=== PATIENT | male | born 1980 | race Caucasian/White ===

== ENCOUNTER 2017-06-27 16:14 | Inpatient (IN) ==
[2017-06-27] MEDS ORDERED: 0.9 % Sodium Chloride 500 ML IVC ONE (16:36)
--- NOTE | 2017-06-27 16:36 | Emergency Department Note ---
Disposition Clinical Impression: Hypertensive emergency, Elevated troponin Disposition: Admitted As Inpatient Condition: Fair Referrals: Elie Gil DO [Primary Care Provider] - Forms: ED Satisfaction Letter General Adult HPI - General Chief complaint: ED Headache Stated complaint: Migraine, chest pain, blurred vision Time Seen by Provider: 06/27/17 16:29 - Related Data Home Medications Medication Instructions Recorded Confirmed Albuterol Neb [Proventil Neb] 2.5 mg IH Q4HR PRN 12/23/16 12/23/16 Albuterol Sulfate [Proair Hfa] 2 puff IH Q4H PRN 12/23/16 12/23/16 Carvedilol [Coreg] 6.25 mg PO BIDWM 12/23/16 12/23/16 Divalproex (24 HR) [Depakote ER 500 mg PO HS 12/23/16 12/23/16 (24 HR)] Doxepin [Sinequan] 25 mg PO HS 12/23/16 12/23/16 Doxycycline Hyclate 20 mg PO BID 12/23/16 12/23/16 Fluticasone Propionate Nasal 2 spray NS DAILY PRN 12/23/16 12/23/16 [Flonase] Fluticasone/Salmeterol [Advair 1 puff IH BID 12/23/16 12/23/16 250-50 Diskus] Gabapentin [Neurontin] 600 mg PO TID 12/23/16 12/23/16 Lisinopril [Zestril] 20 mg PO DAILY 12/23/16 12/23/16 Lurasidone HCl [Latuda] 80 mg PO DAILY 12/23/16 12/23/16 Long/Poly/Juwan OINT [Triple 1 appl TP BID 12/23/16 12/23/16 Antibiotic Ointment] Omeprazole [PriLOSEC] 20 mg PO DAILY 12/23/16 12/23/16 Tiotropium [Spiriva] 1 cap IH DAILY 12/23/16 12/23/16 Triamterene/Hydrochlorothiazid 1 tab PO DAILY 12/23/16 12/23/16 [Dyazide 37.5-25 Capsule] amLODIPine [Norvasc] 5 mg PO DAILY 12/23/16 12/23/16 predniSONE [PredniSONE] 10 mg PO DAILY 12/23/16 12/23/16 Allergies Allergy/AdvReac Type Severity Reaction Status Date / Time albuterol Allergy See Verified 10/01/15 23:02 Comments atropine Allergy See Verified 10/01/15 23:02 Comments doxycycline Allergy See Verified 12/23/16 13:14 Comments duloxetine [From Cymbalta] Allergy See Verified 12/23/16 13:14 Comments venlafaxine [From Effexor] Allergy See Verified 12/23/16 13:13 Comments Past Medical History - Past Medical History Medical history: Reports: asthma, COPD, hypertension, seizures Psychiatric history: Reports: anxiety, bipolar, depression - Social History Smoking Status: Current every day smoker Smokeless Tobacco Status: No Alcohol use: Reports: none Drug use: Reports: none Course Vital Signs Temperature 0 F L 06/27/17 16:34 Pulse Rate 78 06/27/17 16:34 Respiratory Rate 18 06/27/17 16:34 Blood Pressure 222/123 06/27/17 16:34 O2 Sat by Pulse Oximetry 92 06/27/17 16:34 Temperature 0 F L 06/27/17 16:34 Pulse Rate 78 06/27/17 16:34 Respiratory Rate 18 06/27/17 16:34 Blood Pressure 222/123 06/27/17 16:34 O2 Sat by Pulse Oximetry 92 06/27/17 16:34 Oxygen Delivery Oxygen Delivery Room Air Medical Decision Making - Lab Data Result diagrams: 06/27/17 16:45 06/27/17 16:45 Lab Results 06/27/17 06/27/17 06/27/17 Range/Units 16:37 16:45 16:45 WBC 8.1 (4.3-11.1) K/mcL RBC 5.92 H (4.19-5.50) M/mcL Hgb 15.9 (12.9-16.9) g/dL Hct 45.5 (37.5-50.1) % MCV 76.9 L (83.0-100.0) fL MCH 26.9 L (28.0-33.3) pg MCHC 34.9 (31.6-35.5) g/dL RDW 13.4 (11.5-14.5) % Plt Count 262 (140-400) K/mcL MPV 10.0 (9.4-12.4) fL Immature Gran % 0.2 (0-4) % Seg Neutrophils % 77.7 % Lymphocytes % 14.4 % Monocytes % 6.8 % Eosinophils % 0.5 % Basophils % 0.4 % Neutrophils # 6.3 (1.6-8.9) K/mcL Lymphocytes # 1.2 (0.6-4.6) K/mcL Monocytes # 0.6 (0.0-1.3) K/mcL Eosinophils # 0.0 (0.0-0.6) K/mcL Basophils # 0.0 (0.0-0.2) K/mcL Immature Plt Fraction 4.9 (1.1-6.1) % Sodium 143 (136-145) mEq/L Potassium 3.3 L (3.5-4.5) mEq/L Chloride 103 (98-109) mEq/L Carbon Dioxide 28 (19-29) mEq/L BUN 6 L (8-26) mg/dL Creatinine 0.85 (0.72-1.25) mg/dL Est GFR ( Amer) > 60 (> 60) Est GFR (Non-Af Amer) > 60 (> 60) BUN/Creatinine Ratio 7 (6-26) Glucose 133 H (70-99) mg/dL POC Glucose 131 H (58-89) Calculated Osmolality 296 (280-300) Calcium 10.1 (8.6-10.8) mg/dL Total Bilirubin 1.5 H (0.2-1.2) mg/dL AST 52 H (5-34) Units/L ALT 37 (0-55) Units/L Alkaline Phosphatase 164 H (38-126) Units/L Troponin I (0-0.03) ng/mL Serum Total Protein 8.2 (6.0-8.3) g/dL Albumin 4.2 (3.5-5.0) g/dL Globulin 4.0 H (2.4-3.5) g/dL Albumin/Globulin Ratio 1.1 (1.1-2.2) 06/27/17 Range/Units 16:45 WBC (4.3-11.1) K/mcL RBC (4.19-5.50) M/mcL Hgb (12.9-16.9) g/dL Hct (37.5-50.1) % MCV (83.0-100.0) fL MCH (28.0-33.3) pg MCHC (31.6-35.5) g/dL RDW (11.5-14.5) % Plt Count (140-400) K/mcL MPV (9.4-12.4) fL Immature Gran % (0-4) % Seg Neutrophils % % Lymphocytes % % Monocytes % % Eosinophils % % Basophils % % Neutrophils # (1.6-8.9) K/mcL Lymphocytes # (0.6-4.6) K/mcL Monocytes # (0.0-1.3) K/mcL Eosinophils # (0.0-0.6) K/mcL Basophils # (0.0-0.2) K/mcL Immature Plt Fraction (1.1-6.1) % Sodium (136-145) mEq/L Potassium (3.5-4.5) mEq/L Chloride (98-109) mEq/L Carbon Dioxide (19-29) mEq/L BUN (8-26) mg/dL Creatinine (0.72-1.25) mg/dL Est GFR ( Amer) (> 60) Est GFR (Non-Af Amer) (> 60) BUN/Creatinine Ratio (6-26) Glucose (70-99) mg/dL POC Glucose (58-89) Calculated Osmolality (280-300) Calcium (8.6-10.8) mg/dL Total Bilirubin (0.2-1.2) mg/dL AST (5-34) Units/L ALT (0-55) Units/L Alkaline Phosphatase (38-126) Units/L Troponin I 0.07 H* (0-0.03) ng/mL Serum Total Protein (6.0-8.3) g/dL Albumin (3.5-5.0) g/dL Globulin (2.4-3.5) g/dL Albumin/Globulin Ratio (1.1-2.2) Critical Care Time Critical Care Time: Yes Total Critical Care Time: 30 Attestation: Patient presented with hypertensive urgency causing chest pain and headache requiring IV nicardipine infusion Attestation Statement - Attestation Attestation: I examined this patient and my medical decision-making was reviewed with the Resident Physician. I agree with the documented findings, disposition and treatment plan as described except to the extent set forth below. [id number] time provided. Patient complains of a headache and chest pain radiating to his back. He has a history of sarcoidosis and medication noncompliance for his hypertension. He is pale and diaphoretic and near syncopal at the time of my initial exam. He is hypertensive with a systolic blood pressure 220. CT chest with IV contrast ordered. CT head ordered. We will review labs and EKG does not show any acute ST segment elevation. Nitroglycerin given for chest pain and assistance with blood pressure control.
--- NOTE | 2017-06-27 16:39 | Emergency Department Note ---
Disposition Clinical Impression: Hypertensive emergency, Elevated troponin Headache Qualifiers: Headache type: unspecified Headache chronicity pattern: unspecified pattern Intractability: not intractable Qualified Code(s): R51 - Headache Chest pain Qualifiers: Chest pain type: unspecified Qualified Code(s): R07.9 - Chest pain, unspecified Disposition: Admitted As Inpatient Condition: Fair Time of Disposition: 19:08 General Adult HPI - General Chief complaint: ED Headache Stated complaint: Migraine, chest pain, blurred vision Time Seen by Provider: 06/27/17 16:29 Source: patient Mode of arrival: wheelchair Limitations: no limitations Nursing Notes Reviewed: Yes Vital Signs Reviewed: Yes - History of Present Illness HPI Narrative: 36-year-old male presents history of hypertension, sarcoid on daily prednisone 20 mg presents for evaluation of migraine as well as chest pain. Patient states that he has not been taking his hypertensive medications over the last couple weeks due to general illness. States that he had a headache that started earlier today. Noted the frontal as well as occipital headache. No aggravating or alleviating factors identified. No focal weakness. No recent trauma. Patient states that he had chest pain that started approximately 3 hours ago noticed to be diffuse across his chest with radiation to his back. Patient reports some nausea no symptoms of emesis. Patient does note to be diaphoretic. No abdominal pain. Patient states he just does not feel well. - Related Data Home Medications Medication Instructions Recorded Confirmed Albuterol Neb [Proventil Neb] 2.5 mg IH Q4HR PRN 12/23/16 12/23/16 Albuterol Sulfate [Proair Hfa] 2 puff IH Q4H PRN 12/23/16 12/23/16 Carvedilol [Coreg] 6.25 mg PO BIDWM 12/23/16 12/23/16 Divalproex (24 HR) [Depakote ER 500 mg PO HS 12/23/16 12/23/16 (24 HR)] Doxepin [Sinequan] 25 mg PO HS 12/23/16 12/23/16 Doxycycline Hyclate 20 mg PO BID 12/23/16 12/23/16 Fluticasone Propionate Nasal 2 spray NS DAILY PRN 12/23/16 12/23/16 [Flonase] Fluticasone/Salmeterol [Advair 1 puff IH BID 12/23/16 12/23/16 250-50 Diskus] Gabapentin [Neurontin] 600 mg PO TID 12/23/16 12/23/16 Lisinopril [Zestril] 20 mg PO DAILY 12/23/16 12/23/16 Lurasidone HCl [Latuda] 80 mg PO DAILY 12/23/16 12/23/16 Long/Poly/Juwan OINT [Triple 1 appl TP BID 12/23/16 12/23/16 Antibiotic Ointment] Omeprazole [PriLOSEC] 20 mg PO DAILY 12/23/16 12/23/16 Tiotropium [Spiriva] 1 cap IH DAILY 12/23/16 12/23/16 Triamterene/Hydrochlorothiazid 1 tab PO DAILY 12/23/16 12/23/16 [Dyazide 37.5-25 Capsule] amLODIPine [Norvasc] 5 mg PO DAILY 12/23/16 12/23/16 predniSONE [PredniSONE] 10 mg PO DAILY 12/23/16 12/23/16 Allergies Allergy/AdvReac Type Severity Reaction Status Date / Time albuterol Allergy See Verified 10/01/15 23:02 Comments atropine Allergy See Verified 10/01/15 23:02 Comments doxycycline Allergy See Verified 12/23/16 13:14 Comments duloxetine [From Cymbalta] Allergy See Verified 12/23/16 13:14 Comments venlafaxine [From Effexor] Allergy See Verified 12/23/16 13:13 Comments All systems ED: reviewed and negative except as stated. Constitutional: Reports: as per HPI. Denies: fever Eyes: Reports: as per HPI ENT ED: Reports: as per HPI Cardiovascular: Reports: as per HPI. Denies: chest pain Respiratory: Reports: as per HPI Gastrointestinal: Reports: as per HPI, nausea. Denies: abdominal pain, vomiting Genitourinary: Reports: as per HPI Musculoskeletal: Reports: as per HPI Integumentary: Reports: as per HPI Neurological: Reports: as per HPI, headache Psychiatric: Reports: as per HPI Endocrine: Reports: as per HPI Hematological/Lymphatic: Reports: as per HPI Past Medical History - Past Medical History Medical history: Reports: asthma, COPD, hypertension, seizures Psychiatric history: Reports: anxiety, bipolar, depression - Social History Smoking Status: Current every day smoker Smokeless Tobacco Status: No Alcohol use: Reports: none Drug use: Reports: none Physical Exam - General Limitations: no limitations General appearance: alert, in distress, other (Near syncope at the time of evaluation.) - Head Head exam: other (Abrasion to scalp) - Eye Eye exam: Present: normal appearance, EOMI - ENT ENT exam: normal exam, mucous membranes moist - Neck Neck exam: Present: normal inspection - Chest Chest inspection: Present: normal inspection - Respiratory Respiratory exam: Present: normal lung sounds bilaterally. Absent: respiratory distress - Cardiovascular Cardiovascular exam: Present: regular rate, normal rhythm. Absent: systolic murmur - Abdominal Exam Abdominal exam: Present: soft, Non-Tender. Absent: tenderness, distention, guarding, rebound, rigidity - Extremities Exam Extremities exam: Present: normal inspection. Absent: pedal edema - Back Exam Back exam: Present: normal inspection - Neurological Exam Neurological exam: Present: alert, oriented X3, CN II-XII intact - Expanded Neurological Exam Patient oriented to: Present: person, place, time Speech: Present: fluid speech Motor strength - LUE: 5/5 Motor strength - RUE: 5/5 Motor strength - LLE: 5/5 Motor strength - RLE: 5/5 - Skin Skin exam: Present: warm (Tinea versicolor across the abdomen/chest), dry, other Course Course Narrative: Patient seen and examined. Patient. Near-syncope diaphoretic at time of exam. Patient's hypertensive noted. Patient likely has hypertensive emergency. Patient will get CT of the head as well as the chest concerns of aortic pathology. Patient also get a cardiac evaluation with EKG troponin basic labs. Patient will be given nitroglycerin for chest pain as well as a pressure lowering - Reevaluation(s) Reevaluation #1: Patient's blood pressure improved after 3 nitroglycerin. Patient's blood pressures down to 140 systolic. Time: 17:01 Reevaluation #2: Patient's resting. Patient's blood pressure systolic is 184. Patient was given stress dose steroids given his daily steroids have been discontinued with his recent illness. Time: 17:26 Reevaluation #3: Patient's blood pressure is beginning to increase. We will start a nicardipine drip. Time: 17:38 Additional Reevaluation(s): 0632. Patient seen and examined. Patient's blood pressure is gradually reducing. Patient's blood pressure is 181 systolic. Patient will be given his Depakote as he says he has been taking it for the past week and a half because he ran out. Patient will also be given pain medicine. Vital Signs Temperature 0 F L 06/27/17 16:34 Pulse Rate 78 06/27/17 16:34 Respiratory Rate 18 06/27/17 16:34 Blood Pressure 222/123 06/27/17 16:34 O2 Sat by Pulse Oximetry 92 06/27/17 16:34 Temperature 0 F L 06/27/17 16:34 Pulse Rate 80 06/27/17 18:17 Respiratory Rate 18 06/27/17 18:17 Blood Pressure 216/131 06/27/17 18:17 O2 Sat by Pulse Oximetry 95 06/27/17 18:17 Oxygen Delivery Oxygen Delivery Room Air Medical Decision Making - MDM Narrative Medical decision making narrative: 36-year-old male since for evaluation of headache as well as chest pain. Patient has a history of sarcoid on chronic steroids. Patient states he has not been taking his blood pressure medications for at least the past couple weeks. Patient states he has been feeling well but is a difficult historian and does not identify any reason why he has not been feeling well. On arrival the patient appeared diaphoretic and near syncope. Patient had a systolic blood pressure in the 200s. Patient was complaining of chest pain. Patient was brought back to the treatment area and EKG was obtained. Patient received a nitroglycerin trial which helped improve his blood pressure however was only temporary improvement and the patient began to become more hypertensive. Concerns that the patient's blood pressure is causing all of the symptoms. Patient was started on a nicardipine drip to help titrate his blood pressure. Patient had CT of the head as well as chest obtained to ensure there is no aortic dissection or pathology. Patient's troponin was elevated likely secondary to his hypertensive crisis. Patient was given stress dose steroids. Patient would need further monitoring including gradual titration patient's blood pressure trending troponins and serial EKGs. - Lab Data Lab results reviewed: Yes I reviewed the patient's lab results. Result diagrams: 06/27/17 16:45 06/27/17 16:45 Lab Results 06/27/17 06/27/17 06/27/17 Range/Units 16:37 16:45 16:45 WBC 8.1 (4.3-11.1) K/mcL RBC 5.92 H (4.19-5.50) M/mcL Hgb 15.9 (12.9-16.9) g/dL Hct 45.5 (37.5-50.1) % MCV 76.9 L (83.0-100.0) fL MCH 26.9 L (28.0-33.3) pg MCHC 34.9 (31.6-35.5) g/dL RDW 13.4 (11.5-14.5) % Plt Count 262 (140-400) K/mcL MPV 10.0 (9.4-12.4) fL Immature Gran % 0.2 (0-4) % Seg Neutrophils % 77.7 % Lymphocytes % 14.4 % Monocytes % 6.8 % Eosinophils % 0.5 % Basophils % 0.4 % Neutrophils # 6.3 (1.6-8.9) K/mcL Lymphocytes # 1.2 (0.6-4.6) K/mcL Monocytes # 0.6 (0.0-1.3) K/mcL Eosinophils # 0.0 (0.0-0.6) K/mcL Basophils # 0.0 (0.0-0.2) K/mcL Immature Plt Fraction 4.9 (1.1-6.1) % Sodium 143 (136-145) mEq/L Potassium 3.3 L (3.5-4.5) mEq/L Chloride 103 (98-109) mEq/L Carbon Dioxide 28 (19-29) mEq/L BUN 6 L (8-26) mg/dL Creatinine 0.85 (0.72-1.25) mg/dL Est GFR ( Amer) > 60 (> 60) Est GFR (Non-Af Amer) > 60 (> 60) BUN/Creatinine Ratio 7 (6-26) Glucose 133 H (70-99) mg/dL POC Glucose 131 H (58-89) Calculated Osmolality 296 (280-300) Calcium 10.1 (8.6-10.8) mg/dL Total Bilirubin 1.5 H (0.2-1.2) mg/dL AST 52 H (5-34) Units/L ALT 37 (0-55) Units/L Alkaline Phosphatase 164 H (38-126) Units/L Troponin I (0-0.03) ng/mL Serum Total Protein 8.2 (6.0-8.3) g/dL Albumin 4.2 (3.5-5.0) g/dL Globulin 4.0 H (2.4-3.5) g/dL Albumin/Globulin Ratio 1.1 (1.1-2.2) Valproic Acid < 2.00 L (50-100) mcg/mL 06/27/17 Range/Units 16:45 WBC (4.3-11.1) K/mcL RBC (4.19-5.50) M/mcL Hgb (12.9-16.9) g/dL Hct (37.5-50.1) % MCV (83.0-100.0) fL MCH (28.0-33.3) pg MCHC (31.6-35.5) g/dL RDW (11.5-14.5) % Plt Count (140-400) K/mcL MPV (9.4-12.4) fL Immature Gran % (0-4) % Seg Neutrophils % % Lymphocytes % % Monocytes % % Eosinophils % % Basophils % % Neutrophils # (1.6-8.9) K/mcL Lymphocytes # (0.6-4.6) K/mcL Monocytes # (0.0-1.3) K/mcL Eosinophils # (0.0-0.6) K/mcL Basophils # (0.0-0.2) K/mcL Immature Plt Fraction (1.1-6.1) % Sodium (136-145) mEq/L Potassium (3.5-4.5) mEq/L Chloride (98-109) mEq/L Carbon Dioxide (19-29) mEq/L BUN (8-26) mg/dL Creatinine (0.72-1.25) mg/dL Est GFR ( Amer) (> 60) Est GFR (Non-Af Amer) (> 60) BUN/Creatinine Ratio (6-26) Glucose (70-99) mg/dL POC Glucose (58-89) Calculated Osmolality (280-300) Calcium (8.6-10.8) mg/dL Total Bilirubin (0.2-1.2) mg/dL AST (5-34) Units/L ALT (0-55) Units/L Alkaline Phosphatase (38-126) Units/L Troponin I 0.07 H* (0-0.03) ng/mL Serum Total Protein (6.0-8.3) g/dL Albumin (3.5-5.0) g/dL Globulin (2.4-3.5) g/dL Albumin/Globulin Ratio (1.1-2.2) Valproic Acid (50-100) mcg/mL - Radiology Data Radiology results reviewed: Yes I reviewed the patient's radiology results. Head CT 06/27/17 16:33 IMPRESSION: No acute intracranial abnormality. D/ / Joe Menjivar MD / Joe Menjivar MD Interpreting Provider: Joe Menjivar MD Chest X-Ray 06/27/17 16:50 IMPRESSION: 1. Chronic interstitial opacities of the lungs bilaterally and mild opacities within the right lung base likely reflecting atelectasis. D/ / Joe Menjivar MD / Joe Menjivar MD Interpreting Provider: Joe Menjivar MD - EKG Data EKG #1 EKG attestation: Yes I reviewed and interpreted this EKG. EKG shows normal: sinus rhythm Rate: normal Rhythm: NSR [place]/QRS: normal Interpretation: no acute changes, unchanged when compared to prior tracing (date ) S.B.ANaomie - Sunny.B.ANaomie Situation: Demographics Background: Presenting Complaint Assessment: Vital Signs, Course and respsone to treatment, Patient/Family Expectation, Pertinant Lab Results Recommendation: Barrier(s) to disposition, Recommendation based on pending studies, treatments, or consults S.B.A.RMele Report Given to: Shana Hogan Repor Time: 18:38
[2017-06-27] MEDS: Nitroglycerin 0.4 MG TAB.SUBL SL PRN ×3 (16:50→17:00)
[2017-06-27 16:52] LABS: Basophils % 0.4 %; Eosinophils % 0.5 %; Hematocrit 45.5 % (37.5-50.1); Hemoglobin 15.9 g/dL (12.9-16.9); Immature Granulocytes % 0.2 % (0-4); Immature Platelets 4.9 % (1.1-6.1); Lymphocytes # 1.2 K/mcL (0.6-4.6); Lymphocytes % 14.4 %; Mean Corpuscular HGB Conc 34.9 g/dL (31.6-35.5); Mean Corpuscular Hemoglobin 26.9 pg (28.0-33.3); Mean Corpuscular Volume 76.9 fL (83.0-100.0); Monocytes # 0.6 K/mcL (0.0-1.3); Monocytes % 6.8 %; Neutrophils # 6.3 K/mcL (1.6-8.9); Platelet Count 262 K/mcL (140-400); Red Blood Count 5.92 M/mcL (4.19-5.50); Red Cell Distribution Width 13.4 % (11.5-14.5); Segmented Neutrophils % 77.7 %
[2017-06-27] MEDS ORDERED: Ondansetron 4 MG/2 ML VIAL IVP ONE (16:53)
[2017-06-27] MEDS ORDERED: Hydrocortisone Sodium Succ 100 MG/2 ML VIAL IVP ONE (17:01)
[2017-06-27 17:05] LABS: Alanine Aminotransferase 37 Units/L (0-55); Albumin 4.2 g/dL (3.5-5.0); Albumin/Globulin Ratio 1.1 (1.1-2.2); Alkaline Phosphatase 164 Units/L (38-126); Aspartate Amino Transferase 52 Units/L (5-34); BUN/Creatinine Ratio 7 (6-26); Bilirubin,Total 1.5 mg/dL (0.2-1.2); Blood Urea Nitrogen 6 mg/dL (8-26); Calcium 10.1 mg/dL (8.6-10.8); Carbon Dioxide 28 mEq/L (19-29); Chloride 103 mEq/L (98-109); Glucose 133 mg/dL (70-99); Osmolality,Calculated 296 (280-300); Potassium 3.3 mEq/L (3.5-4.5); Sodium 143 mEq/L (136-145); Total Protein 8.2 g/dL (6.0-8.3); eGFR For African Americans > 60 (> 60); eGFR For Non-African Americans > 60 (> 60)
[2017-06-27] MEDS: niCARdipine 40 MG/200 ML MLS IVC SCH (18:14)
[2017-06-27 18:20] LABS: Valproate < 2.00 mcg/mL (50-100)
[2017-06-27] MEDS ORDERED: *HR* HYDROmorphone (PF) 1 MG/ML SYRINGE IVP ONE (18:31)
[2017-06-27] MEDS ORDERED: Divalproex (24 HR) 500 MG TABLET PO SCH (21:00)
[2017-06-27] MEDS ORDERED: *HR* Promethazine 25 MG/ML VIAL IVP PRN (21:11)
[2017-06-27] MEDS ORDERED: Ondansetron 4 MG/2 ML VIAL IVP PRN (21:11)
[2017-06-27] MEDS ORDERED: Naloxone 0.4 MG/ML INJ IVP PRN (21:11)
[2017-06-27] MEDS ORDERED: Ibuprofen 400 MG TABLET PO PRN (21:11)
--- NOTE | 2017-06-27 21:11 | Internal Med History&Physical ---
<Petey Rodriguez - Last Filed: 06/28/17 05:34> Date of Encounter: 06/28/17 Time of Encounter: 20:45 Assessment and Plan (1) Hypertensive emergency Current visit: Yes Status: Acute Patient present to the hospital with highly elevated blood pressure, above 220 systolic. His blood pressure is likely due to his inability to take his oral antihypertensives for about a week and likely rebound. Is unable to take his blood pressure medications because he has been feeling somewhat ill and nauseated. Anticipate headache will improve her blood pressure better controlled. We will control nausea with ondansetron so he is able tolerate by mouth Resume antihypertensive medications, including: Amlodipine, carvedilol, lisinopril, triamterene/HCTZ Continue to titrate the Cardene drip to keep patient's blood pressure below 160 , titrate Cardene off if possible (2) Headache Current visit: Yes Status: Acute Patient reports severe headache beginning behind his eyes and in his neck. He describes the pain as severe. His headache is associated with a blurry vision, is all likely due to his extreme blood pressure. We will control pain with acetaminophen, ibuprofen, oxycodone, hydromorphone as needed for headache severity We will control blood pressure as above Qualifiers: Headache type: unspecified Headache chronicity pattern: unspecified pattern Intractability: not intractable Qualified Code(s): R51 - Headache (3) Elevated troponin Current visit: Yes Status: Acute Patient presents with elevated troponins of 0.07 with follow-up of 0.09. Patient does report having atypical chest pain, unlikely ACS given presentation , EKG without ischemic changes, and relatively flat troponins. Likely demand ischemia in the presence of hypertensive emergency We will continue to trend troponin every 6 We will obtain echocardiogram (4) Sarcoidosis Current visit: Yes Status: Chronic Patient diagnosed with sarcoidosis, had multiple biopsies in the past. Is under the care of a physician at [facility]. He is chronically on Prinivil. We will continue home prednisone (5) COPD (chronic obstructive pulmonary disease) Current visit: Yes Status: Chronic Currently stable. Continue home medications Qualifiers: COPD type: chronic bronchitis Chronic bronchitis type: simple Qualified Code(s): J41.0 - Simple chronic bronchitis (6) DVT prophylaxis Current visit: Yes Status: Acute 5000 units heparin subcutaneous 3 times a day Internal Medicine - H&P: HPI Chief complaint: Headache and Chest Pain Admitted From: Home Plans for Post Hospital Care: Home History of present illness: Mr. Parekh is a 36 year old male with prior medical history of COPD, sarcoidosis , hypertension, and bipolar and anxiety who presents to [facility] on 06/27/17 with severe headache and chest pain. He reports that he is feeling sick for roughly a month prior to presentation, but today it was worse than usual probably him to come in the emergency room. He did try to go to the emergency room previously but between car troubles intermittence of symptoms he never came to the hospital. His headache today started 2:00 in the afternoon behind his eyes and his temples and also in his neck (reactive previous neck fusion). It is a constant feeling where she feels he has some nausea and blurred vision (especially in his right eye), and is 9/10 in severity. He states chest pain began about 2 hours after the onset of headache and feels pain is sharp in character, localized to the right of center of his chest, and worsened by deep breathing, but no radiation. He states he is ever had symptoms before. During the past month he has had multiple episodes of feeling ill, sick to his stomach, emesis, and overall feeling when he has infection. This has caused him to miss several of his medications including his blood pressure medications for the past week. He also states that he has been with pain pump previously for his chronic pain issues, but was in the process of weaning down his medications, to supplement the pump he also is taking Tylenol consistently, but recently has not been able to because of his overall sickness. He has an extensive history of sarcoidosis with skin lesions, lung lesions, esophageal lesions for which she is under care at [facility], and recently had biopsies before. He states he had a prior heart surgery to remove a "mass" in his heart, but is unable to specify exactly what he was referring. Past Med Surg Social Fam HX - Past Medical History Medical history: asthma, COPD, hypertension, seizures Psychiatric history: anxiety, bipolar, depression - Social History Smoking Status: Current every day smoker Smokeless Tobacco Status: No Alcohol use: none Drug use: none Internal Medicine - H&P: Meds Albuterol Neb [Proventil Neb] 2.5 mg IH Q4HR PRN 12/23/16 [History] Albuterol Sulfate [Proair Hfa] 2 puff IH Q4H PRN 12/23/16 [History] Carvedilol [Coreg] 6.25 mg PO BIDWM 12/23/16 [History] Divalproex (24 HR) [Depakote ER (24 HR)] 500 mg PO HS 12/23/16 [History] Doxepin [Sinequan] 25 mg PO HS 12/23/16 [History] Doxycycline Hyclate 20 mg PO BID 12/23/16 [History] Fluticasone Propionate Nasal [Flonase] 2 spray NS DAILY PRN 12/23/16 [History] Fluticasone/Salmeterol [Advair 250-50 Diskus] 1 puff IH BID 12/23/16 [History] Gabapentin [Neurontin] 600 mg PO TID 12/23/16 [History] Lisinopril [Zestril] 20 mg PO DAILY 12/23/16 [History] Lurasidone HCl [Latuda] 80 mg PO DAILY 12/23/16 [History] Long/Poly/Juwan OINT [Triple Antibiotic Ointment] 1 appl TP BID 12/23/16 [History] Omeprazole [PriLOSEC] 20 mg PO DAILY 12/23/16 [History] Tiotropium [Spiriva] 1 cap IH DAILY 12/23/16 [History] Triamterene/Hydrochlorothiazid [Dyazide 37.5-25 Capsule] 1 tab PO DAILY [History] amLODIPine [Norvasc] 5 mg PO DAILY 12/23/16 [History] predniSONE [PredniSONE] 10 mg PO DAILY 12/23/16 [History] 3 Allergy/AdvReac Type Severity Reaction Status Date / Time albuterol Allergy See Verified 10/01/15 23:02 Comments atropine Allergy See Verified 10/01/15 23:02 Comments doxycycline Allergy See Verified 12/23/16 13:14 Comments duloxetine [From Cymbalta] Allergy See Verified 12/23/16 13:14 Comments venlafaxine [From Effexor] Allergy See Verified 12/23/16 13:13 Comments Review of systems: Gen: Denies fever, denies chills, denies weakness, denies fatigue, reports malaise CV: Reports chest pain, denies palpitations Resp: Reports mild, chronic shortness of breath, reports chest pain worsened with deep breathing, denies coughing, denies changes in phlegm production, denies wheeze GI: Reports nausea, reports vomiting, denies abdominal pain, reports diarrhea and constipation alternating, denies hematochezia, denies melena Neuro: Reports headache, denies confusion, denies focal weakness, denies numbness, denies tingling, reports blurred vision Skin: Denies bruising, reports rash and skin growths on his head and forearms, under the care of dermatology : Denies flank pain, denies dysuria, denies hematuria - Constitutional Vitals: Temp Pulse Resp BP Pulse Ox 98.6 F 94 16 129/89 96 06/27/17 19:49 06/27/17 19:49 06/27/17 19:49 06/27/17 19:49 06/27/17 19:49 Exam: General: Cooperative, pleasant, appears in pain,, alert and oriented 3, answers questions appropriately HEENT: Normocephalic, atraumatic, neck supple, trachea midline, Conjunctiva pink , sclera anicteric, EOMI, PERRL, oral mucosa moist, no orophargeal erythema or exudates Respiratory: No accessory muscle usage, clear to auscultation bilaterally, no wheezes/rhonchi/rales appreciated Cardiovascular: Regular rate and rhythm, S1 and S2 present, no murmurs/rubs/ gallops/clicks appreciated GI/abdominal: Nondistended, nontender, soft, normal bowel sounds, no peritoneal signs Extremities: No calf tenderness, noncyanotic, no pedal edema appreciated, warm, lower extremity pulses palpable and symmetrical Neurological: Alert and oriented 3, no facial droop, no focal deficits, no photophobia, no nuchal rigidity, Skin: Dry, multiple pocked areas of skin in different stages of healing on bilateral forearms, small scrape on frontal part of forehead, 1.5 cm diameter abrasion on top of head, areas of pallor surrounded by normal skin and upper chest Internal Med - H&P Results - Labs CBC & Chem 7: 06/28/17 00:32 06/28/17 00:32 <Smitha Raza - Last Filed: 06/28/17 07:32> Date of Encounter: 06/28/17 Internal Medicine - H&P: HPI History of present illness: Mr. Parekh is a 36 year old male All Systems PM: A 10-system review of systems was performed and is negative for pertinent findings except as documented above in the HPI. - Constitutional Vitals: Temp Pulse Resp BP Pulse Ox 98.3 F 78 16 152/98 96 06/28/17 07:15 06/28/17 07:15 06/28/17 07:15 06/28/17 07:15 06/28/17 07:15 Internal Med - H&P Results - Labs CBC & Chem 7: 06/28/17 00:32 06/28/17 00:32 Labs: Short CBC 06/28/17 Range/Units 00:32 WBC 5.9 (4.3-11.1) K/mcL Hgb 14.6 (12.9-16.9) g/dL Hct 42.5 (37.5-50.1) % Plt Count 246 (140-400) K/mcL Neutrophils # 4.7 (1.6-8.9) K/mcL BMP 06/28/17 00:32 Sodium 140 Potassium 3.7 Chloride 103 Carbon Dioxide 27 BUN 6 L Creatinine 0.80 Glucose 155 H Calcium 9.4 Cardiac Enzymes 06/28/17 06/28/17 Range/Units 00:32 06:13 Troponin I 0.09 H* 0.05 H* (0-0.03) ng/mL - Attending Attestation I have personally seen and examined the patient and plan discussed with the resident. Patient came in with hypertensive urgency headache and chest pain. It appears for the reason of migraine. Was not able to take this medication for 3-4 days and he was nicardipine to being drip in the ER. He is restarted on his home medication. It is suspected that his positive troponins or perhaps demand ischemia and there recycyle. Examination is unremarkable
[2017-06-27] MEDS: Lisinopril 20 MG TABLET PO SCH (21:50)
[2017-06-27] MEDS: *HR* OxyCODONE Immed Rel 5 MG TABLET PO PRN (21:50)
[2017-06-27] MEDS: *HR* Heparin 5,000 UNIT/ML VIAL SQ SCH (21:50)
[2017-06-27] MEDS: amLODIPine 5 MG TABLET PO SCH (21:50)
[2017-06-28 01:05] LABS: Basophils % 0.2 %; Hematocrit 42.5 % (37.5-50.1); Hemoglobin 14.6 g/dL (12.9-16.9); Immature Granulocytes % 0.5 % (0-4); Lymphocytes # 0.8 K/mcL (0.6-4.6); Mean Corpuscular HGB Conc 34.4 g/dL (31.6-35.5); Mean Corpuscular Hemoglobin 26.5 pg (28.0-33.3); Mean Corpuscular Volume 77.1 fL (83.0-100.0); Mean Platelet Volume 10.2 fL (9.4-12.4); Monocytes # 0.3 K/mcL (0.0-1.3); Monocytes % 4.8 %; Neutrophils # 4.7 K/mcL (1.6-8.9); Platelet Count 246 K/mcL (140-400); Red Blood Count 5.51 M/mcL (4.19-5.50); Red Cell Distribution Width 13.5 % (11.5-14.5); Segmented Neutrophils % 80.5 %
[2017-06-28 01:09] LABS: INR 1.1; Prothrombin Time 12.1 Seconds (9.4-12.1)
[2017-06-28 01:12] LABS: Activated Partial Thrombo Time 30.3 Seconds (26.0-36.0)
[2017-06-28 01:19] LABS: BUN/Creatinine Ratio 8 (6-26); Blood Urea Nitrogen 6 mg/dL (8-26); Calcium 9.4 mg/dL (8.6-10.8); Carbon Dioxide 27 mEq/L (19-29); Chloride 103 mEq/L (98-109); Chol/HDL Ratio 2.6 (0-4.9); Cholesterol 122 mg/dL (< 200); Glucose 155 mg/dL (70-99); HDL Cholesterol 47 mg/dL (40-59); LDL Cholesterol,Calculated 67 mg/dL (0-99); Magnesium 1.5 mg/dL (1.6-2.6); Osmolality,Calculated 291 (280-300); Phosphorous 4.2 mg/dL (2.3-4.7); Potassium 3.7 mEq/L (3.5-4.5); Sodium 140 mEq/L (136-145); Triglycerides 38 mg/dL (< 150); eGFR For African Americans > 60 (> 60); eGFR For Non-African Americans > 60 (> 60)
[2017-06-28] MEDS: Albuterol 2.5 MG/3 ML NEBULIZER IH SCH ×6 (02:45→21:08)
[2017-06-28] MEDS: *HR* Heparin 5,000 UNIT/ML VIAL SQ SCH ×3 (06:37→21:41)
[2017-06-28] MEDS: Lisinopril 20 MG TABLET PO SCH (07:48)
[2017-06-28] MEDS: predniSONE 10 MG TABLET PO SCH (07:48)
[2017-06-28] MEDS: Gabapentin 300 MG CAPSULE PO SCH ×3 (07:48→21:40)
[2017-06-28] MEDS: Tiotropium 18 MCG inhalation IH SCH (07:49)
[2017-06-28] MEDS: Budesonide/Formoterol 80/4.5 MDI IH SCH ×2 (07:49→21:08)
[2017-06-28] MEDS: Pantoprazole 40 MG VIAL IVP SCH (07:49)
[2017-06-28] MEDS: *HR* OxyCODONE Immed Rel 5 MG TABLET PO PRN ×2 (07:49→15:23)
[2017-06-28] MEDS: amLODIPine 5 MG TABLET PO SCH (07:49)
[2017-06-28] MEDS: Acetaminophen 325 MG TABLET PO PRN ×2 (07:49→15:23)
--- NOTE | 2017-06-28 12:37 | Internal Med Progress Note ---
Date of Encounter: 06/28/17 Time of Encounter: 12:36 - Assessment and plan (1) Hypertensive emergency Current Visit: Yes Status: Acute Assessment and plan: likely related to medication noncompliance and headache resumed amlodipine, coreg, lisinopril and triamteren with HCTZ discontinue (2) Elevated troponin Current Visit: Yes Status: Acute Assessment and plan: likely secondary to demand ischemia echocardiogram pending (3) Chest pain Current Visit: Yes Status: Acute Assessment and plan: pleuritic pain likely secondary to bilateral pleural effusions echo start lasix IV Qualifiers: Chest pain type: pleurodynia Qualified Code(s): R07.81 - Pleurodynia (4) Sarcoidosis Current Visit: Yes Status: Chronic Assessment and plan: possibly with dermatologic involvement continue prednisone needs to follow up with rheumatology (5) COPD (chronic obstructive pulmonary disease) Current Visit: Yes Status: Chronic Assessment and plan: no exacerbation Qualifiers: COPD type: chronic bronchitis Chronic bronchitis type: simple Qualified Code(s): J41.0 - Simple chronic bronchitis - Subjective Interval history: Headache has improved slightly, has bilateral pleuritic chest pain, has had cutaneous lesions for the past 3 months seen by dermatology, is short of breath , weak, denies any nausea, abdominal pain or diarrhea - Constitutional Vitals: Temp Pulse Resp BP Pulse Ox 98.5 F 80 16 128/83 98 06/28/17 11:01 06/28/17 11:37 06/28/17 11:52 06/28/17 11:01 06/28/17 11:52 General appearance: Present: A&O X 3 - Head Head exam: Present: atraumatic, normocephalic - Eye Eye exam: Present: PERRL, conjuntiva pink, sclera anicteric Pupils: Present: PERRL - Neck Neck exam general surgery: Present: supple, trachea midline. Absent: lymphadenopathy - Respiratory Respiratory exam: Present: CTAB. Absent: accessory muscle use, rales, rhonchi, wheezes Additional comments: Bilateral base blunted breath sounds, mild crackles - Cardiovascular Cardiovascular exam: Present: RRR, +S1, +S2. Absent: diastolic murmur, gallop, rubs, systolic murmur - GI/Abdominal GI/Abdominal exam: Present: normal bowel sounds, soft, no peritoneal signs. Absent: distended, tenderness - Extremities Exam Extremities exam: Present: warm, radial pulses palpable and symmetrical. Absent : calf tenderness, cyanotic, pedal edema - Neurological Exam Neurological exam: Present: CN II-XII intact, oriented X3, no focal deficits. Absent: pronater drift, facial droop, speech deficit - Skin Skin exam: Present: dry, excoriation (multiple dermatologic lesions in scalp arms and legs, no evidence of infection ). Absent: intact Internal Medicine: Result - Labs CBC & Chem 7: 06/28/17 00:32 06/28/17 00:32 Labs: Short CBC 06/28/17 Range/Units 00:32 WBC 5.9 (4.3-11.1) K/mcL Hgb 14.6 (12.9-16.9) g/dL Hct 42.5 (37.5-50.1) % Plt Count 246 (140-400) K/mcL Neutrophils # 4.7 (1.6-8.9) K/mcL BMP 06/28/17 00:32 Sodium 140 Potassium 3.7 Chloride 103 Carbon Dioxide 27 BUN 6 L Creatinine 0.80 Glucose 155 H Calcium 9.4 Cardiac Enzymes 06/28/17 06/28/17 Range/Units 00:32 06:13 Troponin I 0.09 H* 0.05 H* (0-0.03) ng/mL - ABG Interpretation ABG results: PT/INR, D-dimer PT 12.1 Seconds (9.4-12.1) 06/28/17 00:32 Consult Discharge Plan - Plan Referrals: Elie Gil DO [Primary Care Provider] -
[2017-06-28] MEDS: Furosemide 40 MG/4 ML VIAL IVP SCH ×2 (12:47→17:21)
[2017-06-28] MEDS: niCARdipine 40 MG/200 ML MLS IVC SCH (19:43)
[2017-06-28] MEDS: *HR* HYDROmorphone (PF) 1 MG/ML SYRINGE IVP PRN (20:29)
[2017-06-28] MEDS ORDERED: Divalproex (24 HR) 500 MG TABLET PO SCH (21:00)
[2017-06-29] MEDS: Albuterol 2.5 MG/3 ML NEBULIZER IH SCH ×4 (00:11→11:23)
[2017-06-29] MEDS: *HR* HYDROmorphone (PF) 1 MG/ML SYRINGE IVP PRN (03:55)
[2017-06-29 04:06] LABS: Hemoglobin 13.5 g/dL (12.9-16.9); Mean Corpuscular HGB Conc 34.6 g/dL (31.6-35.5); Mean Corpuscular Hemoglobin 27.7 pg (28.0-33.3); Mean Corpuscular Volume 80.1 fL (83.0-100.0); Mean Platelet Volume 10.5 fL (9.4-12.4); Platelet Count 221 K/mcL (140-400); Red Blood Count 4.87 M/mcL (4.19-5.50); Red Cell Distribution Width 13.9 % (11.5-14.5)
[2017-06-29 04:20] LABS: BUN/Creatinine Ratio 18 (6-26); Calcium 9.1 mg/dL (8.6-10.8); Carbon Dioxide 31 mEq/L (19-29); Chloride 98 mEq/L (98-109); Glucose 93 mg/dL (70-99); Osmolality,Calculated 294 (280-300); Potassium 3.4 mEq/L (3.5-4.5); Sodium 141 mEq/L (136-145); eGFR For African Americans > 60 (> 60); eGFR For Non-African Americans > 60 (> 60)
[2017-06-29 04:23] LABS: Blood Urea Nitrogen 19 mg/dL (8-26)
[2017-06-29] MEDS: *HR* Heparin 5,000 UNIT/ML VIAL SQ SCH (05:59)
[2017-06-29 06:38] VITALS: BP 103/67
[2017-06-29] MEDS: Budesonide/Formoterol 80/4.5 MDI IH SCH (07:48)
--- NOTE | 2017-06-29 07:50 | Discharge Summary ---
Date of Encounter: 06/29/17 Time of Encounter: 07:45 - Discharge Diagnosis (1) Hypertensive emergency Priority: Primary Status: Acute (2) Pleural effusion Priority: Primary Status: Acute Comments: Likely secondary to diastolic CHF Echocardiogram showed an ejection fraction of 60-65% (3) Pulmonary edema Priority: Primary Status: Acute Qualifiers: Chronicity: acute Qualified Code(s): J81.0 - Acute pulmonary edema (4) Elevated troponin Priority: Secondary Status: Acute (5) Chest pain Priority: Secondary Status: Acute Qualifiers: Chest pain type: pleurodynia Qualified Code(s): R07.81 - Pleurodynia (6) Sarcoidosis Priority: Secondary Status: Chronic (7) COPD (chronic obstructive pulmonary disease) Priority: Secondary Status: Chronic Qualifiers: COPD type: chronic bronchitis Chronic bronchitis type: simple Qualified Code(s): J41.0 - Simple chronic bronchitis - Discharge Medications Prescriptions: Furosemide [Lasix] 40 mg PO DAILY #30 tablet Oxycodone HCl 15 mg PO Q6H PRN #20 tablet PRN Reason: pain Potassium Chloride [K-Tab ER] 10 meq PO DAILY #30 tablet.er Home Medications: Albuterol Neb [Proventil Neb] 2.5 mg IH Q4HR PRN 12/23/16 [History] Albuterol Sulfate [Proair Hfa] 2 puff IH Q4H PRN 12/23/16 [History] Carvedilol [Coreg] 6.25 mg PO BIDWM 12/23/16 [History] Divalproex (24 HR) [Depakote ER (24 HR)] 500 mg PO HS 12/23/16 [History] Doxepin [Sinequan] 25 mg PO HS 12/23/16 [History] Fluticasone Propionate Nasal [Flonase] 2 spray NS DAILY PRN 12/23/16 [History] Fluticasone/Salmeterol [Advair 250-50 Diskus] 1 puff IH BID 12/23/16 [History] Gabapentin [Neurontin] 600 mg PO TID 12/23/16 [History] Lisinopril [Zestril] 20 mg PO DAILY 12/23/16 [History] Lurasidone HCl [Latuda] 80 mg PO DAILY 12/23/16 [History] Long/Poly/Juwan OINT [Triple Antibiotic Ointment] 1 appl TP BID 12/23/16 [History] Omeprazole [PriLOSEC] 20 mg PO DAILY 12/23/16 [History] Tiotropium [Spiriva] 1 cap IH DAILY 12/23/16 [History] Triamterene/Hydrochlorothiazid [Dyazide 37.5-25 Capsule] 1 tab PO DAILY [History] amLODIPine [Norvasc] 5 mg PO DAILY 12/23/16 [History] predniSONE [PredniSONE] 10 mg PO DAILY 12/23/16 [History] Furosemide [Lasix] 40 mg PO DAILY #30 tablet 06/29/17 [Rx] Oxycodone HCl 15 mg PO Q6H PRN #20 tablet 06/29/17 [Rx] Potassium Chloride [K-Tab ER] 10 meq PO DAILY #30 tablet.er 06/29/17 [Rx] Allergies/Adverse Reactions: 3 Allergy/AdvReac Type Severity Reaction Status Date / Time albuterol Allergy See Verified 10/01/15 23:02 Comments atropine Allergy See Verified 10/01/15 23:02 Comments doxycycline Allergy See Verified 12/23/16 13:14 Comments duloxetine [From Cymbalta] Allergy See Verified 12/23/16 13:14 Comments venlafaxine [From Effexor] Allergy See Verified 12/23/16 13:13 Comments Procedures/tests Complete & Pending: Procedures Performed prior 72 hours Category Date Time Status EV echocardiogram Routine Y 06/28/17 07:00 Completed Date of admission: 06/27/17 18:49 Primary care physician: Dulce Nelson Consults: 06/28/17 12:50 Consult to Quality Assurance Nurse [CONS] Routine Reason for SW Consult: HOME OXYGEN - Patient Status Disposition: Home, Self-Care Condition: Good Overall status at discharge: patient is back to baseline - Discharge Instructions Follow Up With: Elie Gil DO [Primary Care Provider] - Additional Instructions: Follow-up with primary care physician within the next 7 days. Follow-up with rheumatology within the next week. Continue prednisone and continue all blood pressure medications. Continue Lasix - Diet and Activity Activity: increase activity as tolerated Diet: regular diet Hospital course: Mr. Parekh is a 36 year old male with prior medical history of tobacco use, COPD not oxygen dependent, sarcoidosis on chronic prednisone, hypertension, and bipolar and anxiety who presented to [facility] on 06/27/17 with severe headache and chest pain. He reported that he is feeling sick for roughly a month prior to presentation, but it was worse. He did try to go to the emergency room previously but between car troubles intermittence of symptoms he never came to the hospital. His headache in the afternoon behind his eyes and his temples and also in his neck (reactive previous neck fusion). It is a constant feeling where he felt he has some nausea and blurred vision ( especially in his right eye), and is 9/10 in severity. During the past month he has had multiple episodes of feeling ill, sick to his stomach, complaining of nausea, and overall feeling when he has infection. This has caused him to miss several of his medications including his blood pressure medications for the past week. He also stated that he has been with pain pump previously for his chronic pain issues, but was in the process of weaning down his medications He has an extensive history of sarcoidosis with skin lesions, lung lesions, esophageal lesions for which he is under care at [facility], and recently had biopsies before. He states he had a prior heart surgery to remove a "mass" in his heart , but is unable to specify exactly what he was referring. Upon admission the patient's blood pressure was 216/131. He was restarted on HIS blood pressure medications and on hydralazine as needed. Today his blood pressure is normal. CT scan of the chest showed small bilateral pleural effusions and pulmonary edema for which she was started on IV Lasix. Patient had an echocardiogram that showed an ejection fraction of 60-65%. Patient is feeling less short of breath today is stable to be discharged home. His been having multiple dermatologic lesions possibly related to sarcoidosis for which she will follow- up with his communications engineer and continue prednisone. Time spent discussing smoking cessation with patient: 3 to 10 minutes - Time Spent with Patient Total time spent providing and/or coordinating discharge services: Greater than 30 minutes (40 min) - Constitutional Vitals: Temp Pulse Resp BP Pulse Ox 98.0 F 90 16 103/67 93 06/29/17 06:33 06/29/17 06:33 06/29/17 06:33 06/29/17 06:33 06/29/17 06:33 General appearance: Present: A&O X 3 Exam: - Head Head exam: Present: atraumatic, normocephalic - Eye Eye exam: Present: PERRL, conjuntiva pink, sclera anicteric Pupils: Present: PERRL - Neck Neck exam general surgery: Present: supple, trachea midline. Absent: lymphadenopathy - Respiratory Respiratory exam: Present: CTAB. Absent: accessory muscle use, rales, rhonchi, wheezes Additional comments: Bilateral fine crackles improved - Cardiovascular Cardiovascular exam: Present: RRR, +S1, +S2. Absent: diastolic murmur, gallop, rubs, systolic murmur - GI/Abdominal GI/Abdominal exam: Present: normal bowel sounds, soft, no peritoneal signs. Absent: distended, tenderness - Extremities Exam Extremities exam: Present: warm, radial pulses palpable and symmetrical. Absent : calf tenderness, cyanotic, pedal edema - Neurological Exam Neurological exam: Present: CN II-XII intact, oriented X3, no focal deficits. Absent: pronater drift, facial droop, speech deficit - Skin Skin exam: Present: dry, excoriation (multiple dermatologic lesions in scalp arms and legs, no evidence of infection ). Absent: intact
[2017-06-29] MEDS: Tiotropium 18 MCG inhalation IH SCH (07:55)
[2017-06-29] MEDS: predniSONE 10 MG TABLET PO SCH (09:21)
[2017-06-29] MEDS: Pantoprazole 40 MG VIAL IVP SCH (09:21)
[2017-06-29] MEDS: Furosemide 40 MG/4 ML VIAL IVP SCH (09:21)
[2017-06-29] MEDS: amLODIPine 5 MG TABLET PO SCH (09:22)
[2017-06-29] MEDS: Gabapentin 300 MG CAPSULE PO SCH (09:22)
[2017-06-29] MEDS: Lisinopril 20 MG TABLET PO SCH (09:22)
[2017-06-29] MEDS: *HR* OxyCODONE Immed Rel 5 MG TABLET PO PRN (09:23)
== END 2017-06-29 15:39 | disposition home or self-care (01) | DRG 304 ==
LOC: EMEROO 16:14 → 2NNU 18:49 → 3ANU 06-28 19:18
PROVIDERS: ADMIT Nurse Practitioner Acute Care; ATTEND Internal Medicine

== ENCOUNTER 2019-09-29 06:54 | Observation (INO) ==
[2019-09-29] MEDS ORDERED: *HR* LORazepam 2 MG/ML VIAL IM ONE (07:14)
[2019-09-29 07:59] LABS: Basophils % 0.2 %; Hematocrit 46.8 % (37.5-50.1); Hemoglobin 16.7 g/dL (12.9-16.9); Immature Granulocytes % 0.6 % (0-4); Lymphocytes # 0.5 K/mcL (0.6-4.6); Lymphocytes % 2.4 %; Mean Corpuscular HGB Conc 35.7 g/dL (31.6-35.5); Mean Corpuscular Hemoglobin 31.3 pg (28.0-33.3); Mean Corpuscular Volume 87.6 fL (83.0-100.0); Mean Platelet Volume 10.5 fL (9.4-12.4); Monocytes # 1.5 K/mcL (0.0-1.3); Monocytes % 7.2 %; Platelet Count 229 K/mcL (140-400); Red Blood Count 5.34 M/mcL (4.19-5.50); Segmented Neutrophils % 89.6 %; White Blood Count 20.1 K/mcL (4.3-11.1)
[2019-09-29 08:18] LABS: Acetaminophen < 10 mcg/mL (10-20); Alanine Aminotransferase 55 Units/L (7-52); Albumin 5.1 g/dL (3.5-5.7); Albumin/Globulin Ratio 1.7 (1.1-2.2); Alkaline Phosphatase 78 Units/L (34-104); Aspartate Amino Transferase 78 Units/L (13-39); BUN/Creatinine Ratio 17 (6-26); Bilirubin,Direct 0.4 mg/dL (0.0-0.2); Bilirubin,Indirect 0.7 mg/dL (0.0-1.0); Bilirubin,Total 1.1 mg/dL (0.3-1.0); Blood Urea Nitrogen 38 mg/dL (6-20); Calcium 10.2 mg/dL (8.6-10.3); Carbon Dioxide 14 mEq/L (23-29); Chloride 98 mEq/L (98-107); Ethanol < 10 mg/dL (Less than 10); Glucose 62 mg/dL (70-105); Lipase 19 Units/L (11-82); Osmolality,Calculated 287 (280-300); Potassium 4.9 mEq/L (3.5-5.1); Salicylate < 2.5 mg/dL (15.0-30.0); Sodium 135 mEq/L (136-145); Total Protein 8.1 g/dL (6.4-8.9); eGFR For African Americans 39 (> 60); eGFR For Non-African Americans 32 (> 60)
[2019-09-29] MEDS ORDERED: 0.9 % Sodium Chloride 1,000 ML IVC ONE ×2 (08:31→10:36)
[2019-09-29] MEDS ORDERED: *HR* Dextrose 50 % in Water (Syg) 50 ML SYRINGE IVP ONE (08:33)
[2019-09-29] MEDS ORDERED: *HR* Dextrose 50 % in Water (Syg) 50 ML SYRINGE ONE (08:44)
[2019-09-29 09:18] LABS: VBG HCO3 16 mEq/L (21-27); VBG PCO2 38 mmHg (41-51); VBG PH 7.25 pH Units (7.32-7.42); VBG PO2 89 mmHg (25-50)
[2019-09-29 10:02] LABS: Amphetamine Screen,Urine Positive ng/mL (Cutoff=1000); Barbiturate Screen,Urine Negative ng/mL (Cutoff=200); Benzodiazepines Screen,Urine Negative ng/mL (Cutoff=300); Cannabinoid Screen,Urine Negative ng/mL (Cutoff = 50); Cocaine Screen,Urine Negative ng/mL (Cutoff= 300)
[2019-09-29 10:03] LABS: Opiate Screen,Urine Positive ng/mL (Cutoff=300); Phencyclidine Screen,Urine Negative ng/mL (Cutoff=25)
[2019-09-29] MEDS ORDERED: 0.9 % Sodium Chloride 1,000 ML IVC STA (10:10)
[2019-09-29] MEDS ORDERED: Ibuprofen 600 MG TABLET PO ONE (10:13)
[2019-09-29 10:14] LABS: Hepatitis B Surface Antigen Nonreactive (Nonreactive)
[2019-09-29 10:32] LABS: Bilirubin,Urine Small (Negative); Blood,Urine Large (Negative); Clarity,Urine Clear (Clear); Color,Urine Yellow (Yellow); Glucose,Urine (UA) Normal (Normal); Ketones,Urine 40 mg/dL (Negative); Leukocyte Esterase,Urine Negative (Negative); Nitrite,Urine Negative (Negative); PH,Urine 5.5 pH Units (5.0-8.0); Protein,Urine 100 mg/dL (Neg-Trace); Specific Gravity,Urine >= 1.030 (1.010-1.025); Urobilinogen,Urine Normal (Normal)
[2019-09-29] MEDS ORDERED: FOMEPIZOLE IV ONE (10:33)
[2019-09-29] MEDS ORDERED: SODIUM CHLORIDE 0.9% IV ONE (10:33)
[2019-09-29] MEDS ORDERED: *HR* Midazolam HCl 2 MG/2 ML VIAL IVP ONE (10:34)
[2019-09-29] MEDS ORDERED: Tetracaine 0.5% OPTH 80 DROP/4 ML BOTTLE BOTH EYES ONE (10:34)
[2019-09-29 10:35] LABS: Creatine Kinase 1410 Units/L (30-223)
[2019-09-29 10:43] LABS: Hepatitis B Core IgM Nonreactive (Nonreactive)
[2019-09-29 10:45] LABS: Hepatitis A Antibody IgM Nonreactive (Nonreactive)
[2019-09-29 10:45] LABS: Hyaline Casts,Urine Few per lpf (None-Few); Squamous Epithelial Cell,Urine Few per lpf (None-Few)
[2019-09-29 10:46] LABS: WBC,Urine 0-3 per hpf (0-3)
[2019-09-29] MEDS ORDERED: cefTRIAXone 2,000 MG in Water for inj. (sterile) 20 ML IVP ONE (11:13)
[2019-09-29 12:08] LABS: Albumin 4.7 g/dL (3.5-5.7); Albumin/Globulin Ratio 1.7 (1.1-2.2); Bilirubin,Direct 0.3 mg/dL (0.0-0.2); Bilirubin,Indirect 0.6 mg/dL (0.0-1.0); Bilirubin,Total 0.9 mg/dL (0.3-1.0); Globulin 2.7 g/dL (2.4-3.5); Total Protein 7.4 g/dL (6.4-8.9)
[2019-09-29] MEDS ORDERED: Ondansetron 4 MG/2 ML VIAL IVP PRN (12:20)
[2019-09-29] MEDS ORDERED: Naloxone 0.4 MG/ML INJ IVP PRN (12:20)
[2019-09-29] MEDS ORDERED: 0.9 % Sodium Chloride w KCl 20 MEQ/1,000 ML MLS IVC SCH (12:30)
[2019-09-29 13:09] LABS: Hepatitis C Virus Antibody Reactive (Nonreactive)
[2019-09-29] MEDS ORDERED: 0.9 % Sodium Chloride 1,000 ML IVC SCH (14:15)
[2019-09-29] MEDS ORDERED: Sodium Bicarbonate 50 MEQ/50 ML VIAL IVP ONE (14:18)
[2019-09-29] MEDS ORDERED: Ringers Solution, Lactated 1,000 ML IVC SCH (14:30)
[2019-09-29] MEDS ORDERED: WATER IVC ONE ×2 (14:45→15:00)
[2019-09-29] MEDS ORDERED: D5 IVC ONE ×2 (14:45→15:00)
[2019-09-29] MEDS ORDERED: SODIUM BICARBONATE IVC ONE ×2 (14:45→15:00)
[2019-09-29] MEDS ORDERED: *HR* Dextrose 50 % in Water (Syg) 50 ML SYRINGE IVP STA (14:59)
[2019-09-29] MEDS ORDERED: Insulin Human Regular 10 UNIT in 0.9 % Sodium Chloride 10 ML IV STA (14:59)
[2019-09-29 15:20] LABS: BUN/Creatinine Ratio 20 (6-26); Blood Urea Nitrogen 30 mg/dL (6-20); Calcium 8.1 mg/dL (8.6-10.3); Carbon Dioxide 15 mEq/L (23-29); Chloride 102 mEq/L (98-107); Glucose 81 mg/dL (70-105); Osmolality,Calculated 277 (280-300); Potassium 5.4 mEq/L (3.5-5.1); Sodium 131 mEq/L (136-145); eGFR For African Americans > 60 (> 60); eGFR For Non-African Americans 53 (> 60)
[2019-09-29 15:35] LABS: ABG Base Excess -12 mEq/L (-2 to 3); ABG HCO3 15 mEq/L (21-27); ABG Oxygen Saturation 95 % (95-98); ABG PCO2 35 mmHg (35-45); ABG PH 7.24 pH Units (7.32-7.45); ABG PO2 89 mmHg (85-104); ABG TCO2 16 mEq/L (20-26)
[2019-09-29 15:41] LABS: Estimated Average Glucose 103 mg/dl
[2019-09-29] MEDS ORDERED: Insulin Regular, Human 100 UNIT/ML IV PRN (15:41)
[2019-09-29] MEDS ORDERED: *HR* Dextrose 50 % in Water (Syg) 50 ML SYRINGE IVP PRN (15:41)
[2019-09-29] MEDS ORDERED: D5% in 0.45% NACL 1,000 ML IVC PRN (15:41)
[2019-09-29] MEDS ORDERED: Insulin Regular, Human 100 UNIT/ML IV ONE (15:41)
[2019-09-29] MEDS ORDERED: Insulin Human Regular 100 UNIT in 0.9 % Sodium Chloride 100 ML IVC SCH (15:45)
[2019-09-29] MEDS ORDERED: Insulin Human Regular 7 UNIT in 0.9 % Sodium Chloride 10 ML IV ONE (16:26)
[2019-09-29] MEDS: Piperacillin/Tazobactam 3.375 GM in 0.9 % Sodium Chloride Mini Bag 100 ML IVPB SCH (17:08)
[2019-09-29] MEDS ORDERED: D5% in 0.45% NACL 1,000 ML IVC SCH (17:15)
[2019-09-29] MEDS ORDERED: *HR* LORazepam 2 MG/ML VIAL IVP ONE (17:51)
[2019-09-29] MEDS ORDERED: Hydrocortisone Sodium Succ 100 MG/2 ML VIAL IVP SCH (18:00)
[2019-09-29 18:14] LABS: BUN/Creatinine Ratio 21 (6-26); Blood Urea Nitrogen 29 mg/dL (6-20); Carbon Dioxide 14 mEq/L (23-29); Chloride 102 mEq/L (98-107); Glucose 75 mg/dL (70-105); Osmolality,Calculated 279 (280-300); Potassium 5.7 mEq/L (3.5-5.1); Sodium 132 mEq/L (136-145); eGFR For African Americans > 60 (> 60); eGFR For Non-African Americans 57 (> 60)
[2019-09-29] MEDS ORDERED: Insulin Human Regular 5 UNIT, Sodium Bicarbonate 50 MEQ in D10% in Water 500 ML IVC ONE (18:45)
[2019-09-29 20:39] LABS: Prothrombin Time 11.9 Seconds (9.4-12.1)
[2019-09-29 20:42] LABS: Activated Partial Thrombo Time 28.6 Seconds (26.0-36.0)
[2019-09-29 20:53] LABS: BUN/Creatinine Ratio 22 (6-26); Blood Urea Nitrogen 28 mg/dL (6-20); Calcium 8.1 mg/dL (8.6-10.3); Carbon Dioxide 20 mEq/L (23-29); Chloride 101 mEq/L (98-107); Glucose 176 mg/dL (70-105); Osmolality,Calculated 282 (280-300); Potassium 4.5 mEq/L (3.5-5.1); Sodium 131 mEq/L (136-145); eGFR For African Americans > 60 (> 60); eGFR For Non-African Americans > 60 (> 60)
[2019-09-29 20:54] LABS: Phosphorous 1.9 mg/dL (2.7-4.5)
[2019-09-29 21:30] LABS: D-Dimer 706 ng/mLFEU (0-500)
[2019-09-29 21:48] LABS: Fibrinogen 311 mg/dL (169-393)
[2019-09-29] MEDS: Ringers Solution, Lactated 1,000 ML IVC SCH (22:16)
[2019-09-30] MEDS: Piperacillin/Tazobactam 3.375 GM in 0.9 % Sodium Chloride Mini Bag 100 ML IVPB SCH ×3 (00:25→16:35)
[2019-09-30] MEDS: Ringers Solution, Lactated 1,000 ML IVC SCH ×4 (02:53→17:16)
[2019-09-30] MEDS: Nicotine 21 MG PATCH.TD24 TD SCH (03:49)
[2019-09-30 04:50] LABS: Eosinophils % 0.2 %; Hematocrit 33.8 % (37.5-50.1); Immature Granulocytes % 0.4 % (0-4); Lymphocytes # 0.8 K/mcL (0.6-4.6); Lymphocytes % 13.7 %; Mean Corpuscular HGB Conc 35.8 g/dL (31.6-35.5); Mean Corpuscular Hemoglobin 31.4 pg (28.0-33.3); Mean Corpuscular Volume 87.8 fL (83.0-100.0); Mean Platelet Volume 10.6 fL (9.4-12.4); Monocytes # 0.8 K/mcL (0.0-1.3); Monocytes % 14.3 %; Platelet Count 117 K/mcL (140-400); Red Blood Count 3.85 M/mcL (4.19-5.50); Red Cell Distribution Width 12.8 % (11.5-14.5); Segmented Neutrophils % 71.4 %
[2019-09-30 04:52] LABS: Hemoglobin 12.1 g/dL (12.9-16.9); Neutrophils # 3.9 K/mcL (1.6-8.9); White Blood Count 5.5 K/mcL (4.3-11.1)
[2019-09-30 05:11] LABS: Alanine Aminotransferase 47 Units/L (7-52); Albumin 3.3 g/dL (3.5-5.7); Albumin/Globulin Ratio 1.7 (1.1-2.2); Alkaline Phosphatase 48 Units/L (34-104); Aspartate Amino Transferase 97 Units/L (13-39); BUN/Creatinine Ratio 20 (6-26); Bilirubin,Total 0.7 mg/dL (0.3-1.0); Blood Urea Nitrogen 20 mg/dL (6-20); Calcium 7.9 mg/dL (8.6-10.3); Carbon Dioxide 22 mEq/L (23-29); Chloride 104 mEq/L (98-107); Glucose 136 mg/dL (70-105); Osmolality,Calculated 283 (280-300); Potassium 3.8 mEq/L (3.5-5.1); Sodium 134 mEq/L (136-145); Total Protein 5.3 g/dL (6.4-8.9); eGFR For African Americans > 60 (> 60); eGFR For Non-African Americans > 60 (> 60)
[2019-09-30] MEDS ORDERED: FOMEPIZOLE IV SCH (06:00)
[2019-09-30] MEDS ORDERED: SODIUM CHLORIDE 0.9% IV SCH (06:00)
[2019-09-30] MEDS ORDERED: *HR* LORazepam 0.5 MG TABLET PO ONE (09:52)
[2019-09-30] MEDS ORDERED: Perflutren Lipid Microsphere 2 ML VIAL ONE (16:02)
[2019-09-30 17:38] LABS: Alanine Aminotransferase 46 Units/L (7-52); Aspartate Amino Transferase 86 Units/L (13-39)
[2019-10-01] MEDS: Piperacillin/Tazobactam 3.375 GM in 0.9 % Sodium Chloride Mini Bag 100 ML IVPB SCH (00:27)
[2019-10-01] MEDS: Nicotine 21 MG PATCH.TD24 TD SCH (03:05)
[2019-10-01] MEDS: Ringers Solution, Lactated 1,000 ML IVC SCH ×3 (05:58→18:42)
[2019-10-01 06:31] LABS: Basophils % 0.6 %; Eosinophils # 0.1 K/mcL (0.0-0.6); Eosinophils % 3.6 %; Hematocrit 35.5 % (37.5-50.1); Hemoglobin 12.2 g/dL (12.9-16.9); Lymphocytes # 0.9 K/mcL (0.6-4.6); Lymphocytes % 25.8 %; Mean Corpuscular HGB Conc 34.4 g/dL (31.6-35.5); Mean Corpuscular Hemoglobin 31.1 pg (28.0-33.3); Mean Corpuscular Volume 90.6 fL (83.0-100.0); Mean Platelet Volume 10.4 fL (9.4-12.4); Monocytes # 0.5 K/mcL (0.0-1.3); Monocytes % 12.5 %; Neutrophils # 2.1 K/mcL (1.6-8.9); Platelet Count 101 K/mcL (140-400); Red Blood Count 3.92 M/mcL (4.19-5.50); Red Cell Distribution Width 13.1 % (11.5-14.5); Segmented Neutrophils % 57.5 %; White Blood Count 3.6 K/mcL (4.3-11.1)
[2019-10-01 06:52] LABS: BUN/Creatinine Ratio 8 (6-26); Blood Urea Nitrogen 10 mg/dL (6-20); Calcium 7.9 mg/dL (8.6-10.3); Carbon Dioxide 28 mEq/L (23-29); Chloride 103 mEq/L (98-107); Glucose 127 mg/dL (70-105); Osmolality,Calculated 291 (280-300); Potassium 3.8 mEq/L (3.5-5.1); Sodium 140 mEq/L (136-145); eGFR For African Americans > 60 (> 60); eGFR For Non-African Americans > 60 (> 60)
[2019-10-01 08:18] LABS: Creatine Kinase 1933 Units/L (30-223)
[2019-10-01] MEDS ORDERED: *HR* Labetalol 20 MG/4 ML SYRINGE IVP ONE (08:48)
[2019-10-01] MEDS ORDERED: amLODIPine 5 MG TABLET PO SCH (09:00)
[2019-10-01] MEDS ORDERED: amLODIPine 5 MG TABLET PO ONE (15:00)
[2019-10-02] MEDS: Ringers Solution, Lactated 1,000 ML IVC SCH ×3 (02:11→15:31)
[2019-10-02] MEDS: Nicotine 21 MG PATCH.TD24 TD SCH (06:47)
[2019-10-02 06:51] LABS: Basophils % 0.9 %; Eosinophils # 0.2 K/mcL (0.0-0.6); Eosinophils % 5.2 %; Hematocrit 38.8 % (37.5-50.1); Lymphocytes % 29.4 %; Mean Corpuscular HGB Conc 35.8 g/dL (31.6-35.5); Mean Corpuscular Hemoglobin 31.4 pg (28.0-33.3); Mean Corpuscular Volume 87.8 fL (83.0-100.0); Mean Platelet Volume 10.5 fL (9.4-12.4); Monocytes # 0.5 K/mcL (0.0-1.3); Monocytes % 15.9 %; Neutrophils # 1.6 K/mcL (1.6-8.9); Platelet Count 122 K/mcL (140-400); Red Blood Count 4.42 M/mcL (4.19-5.50); Red Cell Distribution Width 12.8 % (11.5-14.5); Segmented Neutrophils % 48.6 %; White Blood Count 3.3 K/mcL (4.3-11.1)
[2019-10-02 06:56] LABS: Hemoglobin 13.9 g/dL (12.9-16.9)
[2019-10-02 07:01] LABS: BUN/Creatinine Ratio 11 (6-26); Blood Urea Nitrogen 9 mg/dL (6-20); Calcium 8.7 mg/dL (8.6-10.3); Carbon Dioxide 30 mEq/L (23-29); Chloride 101 mEq/L (98-107); Glucose 82 mg/dL (70-105); Osmolality,Calculated 284 (280-300); Potassium 3.8 mEq/L (3.5-5.1); Sodium 138 mEq/L (136-145); eGFR For African Americans > 60 (> 60); eGFR For Non-African Americans > 60 (> 60)
[2019-10-02] MEDS: amLODIPine 5 MG TABLET PO SCH (07:41)
[2019-10-03] MEDS: Ringers Solution, Lactated 1,000 ML IVC SCH ×4 (00:09→06:56)
[2019-10-03] MEDS: Nicotine 21 MG PATCH.TD24 TD SCH (04:18)
[2019-10-03 04:27] LABS: BUN/Creatinine Ratio 19 (6-26); Blood Urea Nitrogen 14 mg/dL (6-20); Calcium 9.4 mg/dL (8.6-10.3); Carbon Dioxide 29 mEq/L (23-29); Chloride 99 mEq/L (98-107); Creatine Kinase 569 Units/L (30-223); Glucose 83 mg/dL (70-105); Osmolality,Calculated 284 (280-300); Sodium 137 mEq/L (136-145); eGFR For African Americans > 60 (> 60); eGFR For Non-African Americans > 60 (> 60)
[2019-10-03 07:50] VITALS: BP 150/101
[2019-10-03] MEDS: amLODIPine 5 MG TABLET PO SCH (09:43)
== END 2019-10-03 13:35 | disposition home or self-care (01) ==
LOC: 2ANU 06:54 → EMEROOARM 06:54 → 2ANU 13:12 → 2NENU 19:18
PROVIDERS: ADMIT Internal Medicine; ATTEND Internal Medicine

== ENCOUNTER 2021-05-07 20:53 | Inpatient (IN) ==
[2021-05-07 21:39] LABS: Basophils % 0.5 %; Eosinophils # 0.1 K/mcL (0.0-0.6); Eosinophils % 1.9 %; Hematocrit 44.3 % (37.5-50.1); Hemoglobin 14.8 g/dL (12.9-16.9); Immature Granulocytes % 0.4 % (0-4); Lymphocytes # 2.4 K/mcL (0.6-4.6); Lymphocytes % 33.2 %; Mean Corpuscular HGB Conc 33.4 g/dL (31.6-35.5); Mean Corpuscular Hemoglobin 30.1 pg (28.0-33.3); Mean Platelet Volume 10.1 fL (9.4-12.4); Monocytes # 0.8 K/mcL (0.0-1.3); Monocytes % 10.8 %; Neutrophils # 3.9 K/mcL (1.6-8.9); Platelet Count 187 K/mcL (140-400); Red Blood Count 4.92 M/mcL (4.19-5.50); Red Cell Distribution Width 12.2 % (11.5-14.5); Segmented Neutrophils % 53.2 %; White Blood Count 7.3 K/mcL (4.3-11.1)
[2021-05-07 22:01] LABS: Acetaminophen < 10 mcg/mL (10-20); BUN/Creatinine Ratio 27 (6-26); Blood Urea Nitrogen 24 mg/dL (6-20); Calcium 9.1 mg/dL (8.6-10.3); Carbon Dioxide 22 mEq/L (23-29); Chloride 106 mEq/L (98-107); Chol/HDL Ratio 1.8 (0-4.9); Cholesterol 122 mg/dL (< 200); Ethanol 291 mg/dL (Less than 10); Glucose 117 mg/dL (70-105); HDL Cholesterol 68 mg/dL (40-59); LDL Cholesterol,Calculated 25 mg/dL (< 100); Osmolality,Calculated 297 (280-300); Salicylate < 2.5 mg/dL (15.0-30.0); Sodium 141 mEq/L (136-145); Triglycerides 144 mg/dL (< 150); eGFR For African Americans > 60 (> 60); eGFR For Non-African Americans > 60 (> 60)
[2021-05-07 22:54] LABS: Bilirubin,Urine Negative (Negative); Blood,Urine Negative (Negative); Clarity,Urine Clear (Clear); Color,Urine Light-Yellow (Yellow); Glucose,Urine (UA) Normal (Normal); Ketones,Urine Negative (Negative); Leukocyte Esterase,Urine Negative (Negative); Nitrite,Urine Negative (Negative); PH,Urine 5.5 pH Units (5.0-8.0); Protein,Urine Negative (Neg-Trace); Urobilinogen,Urine Normal (Normal)
[2021-05-07 23:06] LABS: Amphetamine Screen,Urine Negative ng/mL (Cutoff=1000); Barbiturate Screen,Urine Negative ng/mL (Cutoff=200); Benzodiazepines Screen,Urine Negative ng/mL (Cutoff=200); Cannabinoid Screen,Urine Negative ng/mL (Cutoff = 50); Cocaine Screen,Urine Negative ng/mL (Cutoff= 300); Opiate Screen,Urine Negative ng/mL (Cutoff=300); Phencyclidine Screen,Urine Negative ng/mL (Cutoff=25)
[2021-05-07 23:31] LABS: Estimated Average Glucose 114 mg/dl; Hemoglobin A1C 5.6 %
[2021-05-07] MEDS: Nicotine 14 MG PATCH.TD24 TD SCH (23:50)
[2021-05-08] MEDS ORDERED: *HR* LORazepam 2 MG/ML VIAL IVP PRN ×2 (01:08)
[2021-05-08] MEDS ORDERED: Naloxone 0.4 MG/ML INJ IVP PRN (01:11)
[2021-05-08] MEDS: *HR* LORazepam 2 MG/ML VIAL IVP PRN ×4 (02:59→20:03)
[2021-05-08] MEDS: Acetaminophen 325 MG TABLET PO PRN ×2 (06:04→20:03)
[2021-05-08] MEDS: Nicotine 14 MG PATCH.TD24 TD SCH (10:02)
[2021-05-08] MEDS: 0.9 % Sodium Chloride 1,000 ML IVC SCH ×2 (10:03→23:14)
[2021-05-08] MEDS: Methadone Oral Concentrate 50 MG/5 ML UDC PO SCH (14:46)
[2021-05-08] MEDS: Divalproex (24 HR) 500 MG TABLET PO SCH (20:03)
[2021-05-08] MEDS: RisperiDONE-M 1 MG TAB.RAPDIS PO SCH (20:03)
[2021-05-09] MEDS: *HR* LORazepam 2 MG/ML VIAL IVP PRN ×3 (00:52→22:37)
[2021-05-09] MEDS ORDERED: *HR* Metoprolol 5 MG/5 ML VIAL IVP PRN (08:46)
[2021-05-09] MEDS: 0.9 % Sodium Chloride 1,000 ML IVC SCH ×2 (09:15→19:41)
[2021-05-09] MEDS: Nicotine 14 MG PATCH.TD24 TD SCH (09:16)
[2021-05-09] MEDS: RisperiDONE-M 1 MG TAB.RAPDIS PO SCH (09:16)
[2021-05-09] MEDS: Methadone Oral Concentrate 50 MG/5 ML UDC PO SCH (09:16)
[2021-05-09] MEDS: Divalproex (24 HR) 500 MG TABLET PO SCH (19:41)
[2021-05-10] MEDS: *HR* LORazepam 2 MG/ML VIAL IVP PRN (03:25)
[2021-05-10] MEDS: 0.9 % Sodium Chloride 1,000 ML IVC SCH ×2 (04:19→15:26)
[2021-05-10] MEDS: *HR* Enoxaparin 40 MG/0.4 ML SYRINGE SQ SCH (04:47)
[2021-05-10] MEDS: Acetaminophen 325 MG TABLET PO PRN (06:14)
[2021-05-10] MEDS: RisperiDONE-M 1 MG TAB.RAPDIS PO SCH (09:30)
[2021-05-10] MEDS: Nicotine 14 MG PATCH.TD24 TD SCH (09:31)
[2021-05-10] MEDS: Methadone Oral Concentrate 50 MG/5 ML UDC PO SCH (09:31)
[2021-05-10] MEDS: carvediloL 6.25 MG TABLET PO SCH ×2 (09:36→17:10)
[2021-05-10 11:34] LABS: Basophils % 0.8 %; Eosinophils # 0.2 K/mcL (0.0-0.6); Eosinophils % 4.8 %; Hematocrit 41.2 % (37.5-50.1); Hemoglobin 13.5 g/dL (12.9-16.9); Immature Granulocytes % 0.3 % (0-4); Immature Platelets 5.8 % (1.1-6.1); Lymphocytes # 0.9 K/mcL (0.6-4.6); Lymphocytes % 25.5 %; Mean Corpuscular HGB Conc 32.8 g/dL (31.6-35.5); Mean Corpuscular Hemoglobin 29.9 pg (28.0-33.3); Mean Corpuscular Volume 91.2 fL (83.0-100.0); Mean Platelet Volume 10.4 fL (9.4-12.4); Monocytes # 0.4 K/mcL (0.0-1.3); Monocytes % 11.9 %; Platelet Count 134 K/mcL (140-400); Red Blood Count 4.52 M/mcL (4.19-5.50); Red Cell Distribution Width 12.1 % (11.5-14.5); Segmented Neutrophils % 56.7 %; White Blood Count 3.5 K/mcL (4.3-11.1)
[2021-05-10 11:52] LABS: BUN/Creatinine Ratio 20 (6-26); Blood Urea Nitrogen 18 mg/dL (6-20); Calcium 9.2 mg/dL (8.6-10.3); Carbon Dioxide 28 mEq/L (23-29); Chloride 105 mEq/L (98-107); Glucose 131 mg/dL (70-105); Magnesium 1.8 mg/dL (1.6-2.6); Osmolality,Calculated 290 (280-300); Phosphorous 3.6 mg/dL (2.7-4.5); Potassium 4.4 mEq/L (3.5-5.1); Sodium 138 mEq/L (136-145); eGFR For African Americans > 60 (> 60); eGFR For Non-African Americans > 60 (> 60)
[2021-05-10] MEDS: Divalproex (24 HR) 500 MG TABLET PO SCH (21:00)
[2021-05-11] MEDS: Acetaminophen 325 MG TABLET PO PRN (01:29)
[2021-05-11] MEDS: 0.9 % Sodium Chloride 1,000 ML IVC SCH ×2 (03:39→03:46)
[2021-05-11] MEDS: *HR* Enoxaparin 40 MG/0.4 ML SYRINGE SQ SCH (05:59)
[2021-05-11 06:43] VITALS: BP 159/105; PULSE 95; TEMP 98.5; O2SAT 96
[2021-05-11] MEDS ORDERED: carvediloL 25 MG TABLET PO SCH (08:00)
[2021-05-11] MEDS: Methadone Oral Concentrate 50 MG/5 ML UDC PO SCH (08:53)
[2021-05-11] MEDS: RisperiDONE-M 1 MG TAB.RAPDIS PO SCH (08:54)
[2021-05-11] MEDS: Nicotine 14 MG PATCH.TD24 TD SCH (08:54)
[2021-05-11] MEDS: *HR* LORazepam 2 MG/ML VIAL IVP PRN (10:39)
== END 2021-05-11 16:30 | DRG 896 ==
LOC: 2ANU 20:53 → EMEROOARM 20:53 → 2ANU 05-08 02:16
PROVIDERS: ADMIT Internal Medicine; ATTEND Internal Medicine

== ENCOUNTER 2021-05-17 11:02 | Observation (INO) ==
[2021-05-17 12:01] LABS: Basophils % 0.4 %; Bilirubin,Urine Negative (Negative); Blood,Urine Negative (Negative); Clarity,Urine Clear (Clear); Color,Urine Light-Yellow (Yellow); Eosinophils # 0.1 K/mcL (0.0-0.6); Eosinophils % 1.1 %; Glucose,Urine (UA) Normal (Normal); Hematocrit 38.7 % (37.5-50.1); Hemoglobin 13.2 g/dL (12.9-16.9); Immature Granulocytes % 0.5 % (0-4); Ketones,Urine Negative (Negative); Leukocyte Esterase,Urine Negative (Negative); Lymphocytes # 1.1 K/mcL (0.6-4.6); Lymphocytes % 19.4 %; Mean Corpuscular HGB Conc 34.1 g/dL (31.6-35.5); Mean Corpuscular Hemoglobin 30.2 pg (28.0-33.3); Mean Corpuscular Volume 88.6 fL (83.0-100.0); Mean Platelet Volume 10.5 fL (9.4-12.4); Monocytes # 0.9 K/mcL (0.0-1.3); Monocytes % 15.4 %; Neutrophils # 3.5 K/mcL (1.6-8.9); Nitrite,Urine Negative (Negative); PH,Urine 5.5 pH Units (5.0-8.0); Platelet Count 158 K/mcL (140-400); Protein,Urine Trace mg/dL (Neg-Trace); Red Blood Count 4.37 M/mcL (4.19-5.50); Red Cell Distribution Width 11.9 % (11.5-14.5); Segmented Neutrophils % 63.2 %; Specific Gravity,Urine 1.029 (1.010-1.025); Urobilinogen,Urine Normal (Normal); White Blood Count 5.5 K/mcL (4.3-11.1)
[2021-05-17 12:11] LABS: Amphetamine Screen,Urine Positive ng/mL (Cutoff=1000); Barbiturate Screen,Urine Negative ng/mL (Cutoff=200); Benzodiazepines Screen,Urine Negative ng/mL (Cutoff=200); Cannabinoid Screen,Urine Negative ng/mL (Cutoff = 50); Cocaine Screen,Urine Negative ng/mL (Cutoff= 300); Opiate Screen,Urine Negative ng/mL (Cutoff=300); Phencyclidine Screen,Urine Negative ng/mL (Cutoff=25)
[2021-05-17 12:29] LABS: Acetaminophen < 10 mcg/mL (10-20); BUN/Creatinine Ratio 34 (6-26); Blood Urea Nitrogen 30 mg/dL (6-20); Calcium 8.5 mg/dL (8.6-10.3); Carbon Dioxide 28 mEq/L (23-29); Chloride 97 mEq/L (98-107); Chol/HDL Ratio 1.9 (0-4.9); Cholesterol 100 mg/dL (< 200); Ethanol < 10 mg/dL (Less than 10); Glucose 231 mg/dL (70-105); HDL Cholesterol 53 mg/dL (40-59); LDL Cholesterol,Calculated 38 mg/dL (< 100); Osmolality,Calculated 290 (280-300); Salicylate < 2.5 mg/dL (15.0-30.0); Sodium 133 mEq/L (136-145); Triglycerides 45 mg/dL (< 150); Troponin I 0.09 ng/mL (< 0.04); eGFR For African Americans > 60 (> 60); eGFR For Non-African Americans > 60 (> 60)
[2021-05-17] MEDS ORDERED: *HR* LORazepam 2 MG/ML VIAL IM STA (12:35)
[2021-05-17] MEDS ORDERED: Naloxone 0.4 MG/ML INJ IVP PRN (12:35)
[2021-05-17] MEDS ORDERED: Aspirin 325 MG TABLET PO ONE (12:37)
[2021-05-17] MEDS ORDERED: D5% in Water 1,000 ML IVC PRN (12:38)
[2021-05-17] MEDS ORDERED: Dextrose Gel 15 GM/37.5 ML TUBE PO PRN ×2 (12:38)
[2021-05-17] MEDS ORDERED: *HR* Dextrose 50 % in Water (Vial) 50 ML VIAL IVP PRN (12:38)
[2021-05-17] MEDS ORDERED: *HR* LORazepam 2 MG/ML VIAL IVP STA (12:39)
[2021-05-17] MEDS ORDERED: Perflutren Lipid Microsphere 1.3 ML in 0.9 % Sodium Chloride 8.7 ML IVP PRN (12:40)
[2021-05-17 14:20] LABS: Estimated Average Glucose 111 mg/dl; Hemoglobin A1C 5.5 %
[2021-05-17] MEDS: Insulin LISPRO 300 UNITS/3 ML VIAL SUBQ SCH ×2 (14:47→17:30)
[2021-05-17] MEDS: *HR* Heparin 5,000 UNIT/ML VIAL SQ SCH (17:30)
[2021-05-17] MEDS: Nicotine 21 MG PATCH.TD24 TD SCH (21:13)
[2021-05-18] MEDS: *HR* LORazepam 2 MG/ML VIAL IVP PRN ×2 (01:03→21:33)
[2021-05-18] MEDS: *HR* Heparin 5,000 UNIT/ML VIAL SQ SCH ×2 (04:57→17:01)
[2021-05-18] MEDS: Insulin LISPRO 300 UNITS/3 ML VIAL SUBQ SCH ×3 (07:55→17:43)
[2021-05-18 13:56] LABS: Basophils % 0.6 %; Eosinophils # 0.2 K/mcL (0.0-0.6); Eosinophils % 4.2 %; Hematocrit 40.8 % (37.5-50.1); Hemoglobin 13.5 g/dL (12.9-16.9); Immature Granulocytes % 0.3 % (0-4); Lymphocytes # 0.8 K/mcL (0.6-4.6); Lymphocytes % 22.9 %; Mean Corpuscular HGB Conc 33.1 g/dL (31.6-35.5); Mean Corpuscular Volume 90.7 fL (83.0-100.0); Mean Platelet Volume 10.6 fL (9.4-12.4); Monocytes # 0.6 K/mcL (0.0-1.3); Platelet Count 146 K/mcL (140-400); Red Cell Distribution Width 12.1 % (11.5-14.5); White Blood Count 3.6 K/mcL (4.3-11.1)
[2021-05-18 14:04] LABS: BUN/Creatinine Ratio 23 (6-26); Blood Urea Nitrogen 18 mg/dL (6-20); Calcium 8.3 mg/dL (8.6-10.3); Carbon Dioxide 26 mEq/L (23-29); Chloride 104 mEq/L (98-107); Glucose 118 mg/dL (70-105); Magnesium 1.9 mg/dL (1.6-2.6); Osmolality,Calculated 287 (280-300); Phosphorous 1.6 mg/dL (2.7-4.5); Potassium 3.9 mEq/L (3.5-5.1); Sodium 137 mEq/L (136-145); eGFR For African Americans > 60 (> 60); eGFR For Non-African Americans > 60 (> 60)
[2021-05-18] MEDS ORDERED: Potassium Phosphate 44 MEQ in 0.9 % Sodium Chloride 250 ML IVPB ONE (14:55)
[2021-05-18] MEDS: Calcium Gluconate 1gm/50mL 1 GM/50 ML BAG IVPB SCH ×2 (17:00→17:38)
[2021-05-18] MEDS: carvediloL 6.25 MG TABLET PO SCH (17:01)
[2021-05-18] MEDS: Divalproex (24 HR) 500 MG TABLET PO SCH (21:34)
[2021-05-18] MEDS: Nicotine 21 MG PATCH.TD24 TD SCH (21:34)
[2021-05-18] MEDS ORDERED: Acetaminophen 325 MG TABLET PO PRN (22:07)
[2021-05-19 03:19] LABS: Red Blood Count 4.24 M/mcL (4.19-5.50); Red Cell Distribution Width 11.9 % (11.5-14.5)
[2021-05-19 03:21] LABS: Hematocrit 38.6 % (37.5-50.1); Hemoglobin 12.6 g/dL (12.9-16.9); Immature Platelets 6.6 % (1.1-6.1); Mean Corpuscular HGB Conc 32.6 g/dL (31.6-35.5); Mean Corpuscular Hemoglobin 29.7 pg (28.0-33.3); Mean Platelet Volume 10.8 fL (9.4-12.4); White Blood Count 3.7 K/mcL (4.3-11.1)
[2021-05-19 03:32] LABS: BUN/Creatinine Ratio 26 (6-26); Blood Urea Nitrogen 20 mg/dL (6-20); Calcium 8.1 mg/dL (8.6-10.3); Carbon Dioxide 25 mEq/L (23-29); Chloride 108 mEq/L (98-107); Glucose 129 mg/dL (70-105); Magnesium 1.6 mg/dL (1.6-2.6); Osmolality,Calculated 290 (280-300); Phosphorous 3.2 mg/dL (2.7-4.5); Potassium 4.1 mEq/L (3.5-5.1); Sodium 138 mEq/L (136-145); eGFR For African Americans > 60 (> 60); eGFR For Non-African Americans > 60 (> 60)
[2021-05-19] MEDS: *HR* Heparin 5,000 UNIT/ML VIAL SQ SCH ×2 (05:41→18:14)
[2021-05-19] MEDS: Insulin LISPRO 300 UNITS/3 ML VIAL SUBQ SCH (08:14)
[2021-05-19] MEDS: RisperiDONE-M 1 MG TAB.RAPDIS PO SCH (08:18)
[2021-05-19] MEDS: carvediloL 6.25 MG TABLET PO SCH ×2 (08:18→18:15)
[2021-05-19] MEDS: *HR* LORazepam 2 MG/ML VIAL IVP PRN ×2 (14:06→23:02)
[2021-05-19] MEDS: Methadone Oral Concentrate 50 MG/5 ML UDC PO SCH (15:57)
[2021-05-19] MEDS: Nicotine 21 MG PATCH.TD24 TD SCH (21:37)
[2021-05-19] MEDS: Divalproex (24 HR) 500 MG TABLET PO SCH (21:37)
[2021-05-20] MEDS: *HR* Heparin 5,000 UNIT/ML VIAL SQ SCH (06:29)
[2021-05-20] MEDS: *HR* LORazepam 2 MG/ML VIAL IVP PRN (06:56)
[2021-05-20 07:52] LABS: Hematocrit 39.2 % (37.5-50.1); Hemoglobin 12.7 g/dL (12.9-16.9); Mean Corpuscular HGB Conc 32.4 g/dL (31.6-35.5); Mean Corpuscular Hemoglobin 29.4 pg (28.0-33.3); Mean Corpuscular Volume 90.7 fL (83.0-100.0); Mean Platelet Volume 10.8 fL (9.4-12.4); Platelet Count 149 K/mcL (140-400); Red Blood Count 4.32 M/mcL (4.19-5.50); White Blood Count 4.5 K/mcL (4.3-11.1)
[2021-05-20 08:20] LABS: BUN/Creatinine Ratio 22 (6-26); Blood Urea Nitrogen 18 mg/dL (6-20); Calcium 8.5 mg/dL (8.6-10.3); Carbon Dioxide 27 mEq/L (23-29); Chloride 105 mEq/L (98-107); Glucose 131 mg/dL (70-105); Magnesium 1.6 mg/dL (1.6-2.6); Osmolality,Calculated 290 (280-300); Phosphorous 3.7 mg/dL (2.7-4.5); Potassium 3.9 mEq/L (3.5-5.1); Sodium 138 mEq/L (136-145); eGFR For African Americans > 60 (> 60); eGFR For Non-African Americans > 60 (> 60)
[2021-05-20] MEDS: RisperiDONE-M 1 MG TAB.RAPDIS PO SCH (08:41)
[2021-05-20] MEDS: carvediloL 6.25 MG TABLET PO SCH (08:41)
[2021-05-20] MEDS: Methadone Oral Concentrate 50 MG/5 ML UDC PO SCH (08:44)
[2021-05-20 15:10] VITALS: BP 106/73; TEMP 98.6
[2021-05-20 15:27] VITALS: PULSE 95; O2SAT 95
== END 2021-05-20 17:16 | disposition home or self-care (01) ==
LOC: 3BNU 11:02 → EMEROOARM 11:02 → SUATTDRO 13:25 → 3BNU 14:11
PROVIDERS: ADMIT Internal Medicine; ATTEND Registered Nurse

== ENCOUNTER 2022-02-02 11:11 | Inpatient (IN) ==
[2022-02-02] MEDS ORDERED: Isovue-370 500 ML BOTTLE IVP ONE (11:20)
[2022-02-02] MEDS ORDERED: 0.9 % Sodium Chloride 1,000 ML IV ONE ×3 (11:22→16:13)
[2022-02-02 11:36] LABS: Basophils % 0.3 %; Eosinophils % 0.6 %; Hematocrit 46.3 % (37.5-50.1); Hemoglobin 16.1 g/dL (12.9-16.9); Immature Granulocytes % 0.1 % (0-4); Lymphocytes # 0.9 K/mcL (0.6-4.6); Lymphocytes % 12.2 %; Mean Corpuscular HGB Conc 34.8 g/dL (31.6-35.5); Mean Corpuscular Hemoglobin 30.3 pg (28.0-33.3); Mean Corpuscular Volume 87.2 fL (83.0-100.0); Mean Platelet Volume 9.9 fL (9.4-12.4); Monocytes # 0.8 K/mcL (0.0-1.3); Monocytes % 11.1 %; Neutrophils # 5.3 K/mcL (1.6-8.9); Platelet Count 175 K/mcL (140-400); Red Blood Count 5.31 M/mcL (4.19-5.50); Red Cell Distribution Width 12.6 % (11.5-14.5); Segmented Neutrophils % 75.7 %; White Blood Count 6.9 K/mcL (4.3-11.1)
[2022-02-02] MEDS ORDERED: *HR* Rocuronium Bromide 50 MG/5 ML VIAL IVP ONE (11:41)
[2022-02-02] MEDS ORDERED: *HR* Midazolam HCl 2 MG/2 ML VIAL IVP ONE (11:41)
[2022-02-02] MEDS ORDERED: *HR* Etomidate 20 MG/10 ML AMPUL IVP ONE (11:41)
[2022-02-02] MEDS ORDERED: *HR* LORazepam 2 MG/ML VIAL ONE (11:43)
[2022-02-02] MEDS ORDERED: *HR* LORazepam 2 MG/ML VIAL IVP ONE (11:44)
[2022-02-02 11:46] LABS: Prothrombin Time 11.5 Seconds (9.4-12.1)
[2022-02-02 11:49] LABS: Activated Partial Thrombo Time 29.4 Seconds (26.0-36.0)
[2022-02-02 12:11] LABS: Bilirubin,Urine Negative (Negative); Blood,Urine Negative (Negative); Clarity,Urine Clear (Clear); Color,Urine Light-Yellow (Yellow); Glucose,Urine (UA) Normal (Normal); Ketones,Urine Trace mg/dL (Negative); Leukocyte Esterase,Urine Negative (Negative); Nitrite,Urine Negative (Negative); Protein,Urine Trace mg/dL (Neg-Trace); Specific Gravity,Urine 1.014 (1.010-1.025); Urobilinogen,Urine Normal (Normal)
[2022-02-02 12:13] LABS: Acetaminophen < 10 mcg/mL (10-20); Alanine Aminotransferase 84 Units/L (7-52); Albumin 3.9 g/dL (3.5-5.7); Albumin/Globulin Ratio 1.2 (1.1-2.2); Alkaline Phosphatase 82 Units/L (34-104); Aspartate Amino Transferase 107 Units/L (13-39); BUN/Creatinine Ratio 16 (6-26); Bilirubin,Direct 0.2 mg/dL (0.0-0.2); Bilirubin,Indirect 0.6 mg/dL (0.0-1.0); Bilirubin,Total 0.8 mg/dL (0.3-1.0); Blood Urea Nitrogen 13 mg/dL (8-23); Calcium 9.5 mg/dL (8.6-10.3); Carbon Dioxide 30 mEq/L (23-29); Chloride 103 mEq/L (98-107); Creatine Kinase 2832 Units/L (30-223); Ethanol < 10 mg/dL (Less than 10); Globulin 3.3 g/dL (2.4-3.5); Glucose 124 mg/dL (70-105); Osmolality,Calculated 294 (280-300); Potassium 3.8 mEq/L (3.5-5.1); Salicylate < 2.5 mg/dL (15.0-30.0); Sodium 141 mEq/L (136-145); Thyroid Stimulating Hormone 0.962 mcIU/mL (0.340-5.600); Total Protein 7.2 g/dL (6.4-8.9); Troponin I < 0.03 ng/mL (< 0.04); eGFR For African Americans > 60 (> 60); eGFR For Non-African Americans > 60 (> 60)
[2022-02-02 12:16] LABS: Amphetamine Screen,Urine Negative ng/mL (Cutoff=1000); Barbiturate Screen,Urine Negative ng/mL (Cutoff=200); Benzodiazepines Screen,Urine Negative ng/mL (Cutoff=200); Cannabinoid Screen,Urine Positive ng/mL (Cutoff = 50); Cocaine Screen,Urine Negative ng/mL (Cutoff= 300); Opiate Screen,Urine Negative ng/mL (Cutoff=300); Phencyclidine Screen,Urine Negative ng/mL (Cutoff=25)
[2022-02-02] MEDS ORDERED: *HR* Midazolam HCl 5 MG/5 ML VIAL IVP ONE ×4 (12:33→16:43)
[2022-02-02 13:26] LABS: ABG Base Excess 1 mEq/L (-2 to 3); ABG HCO3 30 mEq/L (21-27); ABG Oxygen Saturation 99 % (95-98); ABG PCO2 62 mmHg (35-45); ABG PH 7.29 pH Units (7.32-7.45); ABG PO2 144 mmHg (85-104); ABG TCO2 32 mEq/L (20-26)
[2022-02-02 14:45] LABS: Influenza A PCR Negative (Negative); Influenza B PCR Negative (Negative); Resp. Syncytial Virus PCR Negative (Negative)
[2022-02-02 14:46] LABS: SARS-CoV-2 by PCR (In House) Negative (Negative)
[2022-02-02] MEDS ORDERED: Artificial Tears SOLN 15 ML BOTTLE BOTH EYES PRN (15:05)
[2022-02-02] MEDS ORDERED: Naloxone 0.4 MG/ML INJ IVP PRN (15:05)
[2022-02-02] MEDS ORDERED: Perflutren Lipid Microsphere 1.3 ML in 0.9 % Sodium Chloride 8.7 ML IVP PRN (15:05)
[2022-02-02] MEDS ORDERED: 0.9 % Sodium Chloride w KCl 20 MEQ/1,000 ML MLS IVC SCH (15:15)
[2022-02-02] MEDS: cefTRIAXone 2,000 MG in 0.9 % Sodium Chloride 20 ML IVP SCH (15:31)
[2022-02-02] MEDS: Pantoprazole 40 MG VIAL IVP SCH (15:32)
[2022-02-02] MEDS ORDERED: Albuterol 2.5 MG/3 ML NEBULIZER IH PRN (15:46)
[2022-02-02] MEDS: FentaNYL (PF) 1,000 MCG/100 ML IV.SOLN IVC SCH ×2 (15:49→20:20)
[2022-02-02] MEDS: Sodium Bicarbonate 150 MEQ in D5% in Water 1,000 ML IVC SCH (16:50)
[2022-02-02] MEDS: Ipratropium/Albuterol Neb 3 ML IH SCH ×3 (17:03→23:22)
[2022-02-02] MEDS: Artificial Tears SOLN 15 ML BOTTLE BOTH EYES SCH ×3 (17:08→23:02)
[2022-02-02] MEDS: Azithromycin 500 MG in 0.9 % Sodium Chloride 250 ML IVPB SCH (17:14)
[2022-02-02] MEDS: *HR* Heparin 5,000 UNIT/ML VIAL SQ SCH (17:20)
[2022-02-02 17:22] LABS: ABG Base Excess 2 mEq/L (-2 to 3); ABG HCO3 29 mEq/L (21-27); ABG Oxygen Saturation 96 % (95-98); ABG PCO2 54 mmHg (35-45); ABG PH 7.33 pH Units (7.32-7.45); ABG PO2 89 mmHg (85-104); ABG TCO2 30 mEq/L (20-26); Blood Gas Modality ASSIST CONTROL; Blood Gas VT 500 cc
[2022-02-02 19:35] LABS: Amphetamine Screen,Urine Negative ng/mL (Cutoff=1000); Barbiturate Screen,Urine Negative ng/mL (Cutoff=200); Benzodiazepines Screen,Urine Positive ng/mL (Cutoff=200); Cannabinoid Screen,Urine Positive ng/mL (Cutoff = 50); Cocaine Screen,Urine Negative ng/mL (Cutoff= 300); Opiate Screen,Urine Negative ng/mL (Cutoff=300); Phencyclidine Screen,Urine Negative ng/mL (Cutoff=25)
[2022-02-02] MEDS: Chlorhexidine Rinse 15 ML MOUTHWASH MM SCH (19:44)
[2022-02-02] MEDS: Budesonide/Formoterol 160/4.5 1 PUFF INH IH SCH (19:50)
[2022-02-03] MEDS: Sodium Bicarbonate 150 MEQ in D5% in Water 1,000 ML IVC SCH (01:02)
[2022-02-03] MEDS: FentaNYL (PF) 1,000 MCG/100 ML IV.SOLN IVC SCH ×2 (03:06→09:10)
[2022-02-03] MEDS: Artificial Tears SOLN 15 ML BOTTLE BOTH EYES SCH ×6 (03:07→23:42)
[2022-02-03] MEDS: Ipratropium/Albuterol Neb 3 ML IH SCH ×5 (03:26→20:05)
[2022-02-03 03:45] LABS: Basophils % 0.3 %; Eosinophils # 0.1 K/mcL (0.0-0.6); Eosinophils % 3.5 %; Hematocrit 39.3 % (37.5-50.1); Immature Granulocytes % 0.3 % (0-4); Lymphocytes # 0.6 K/mcL (0.6-4.6); Lymphocytes % 17.9 %; Mean Corpuscular HGB Conc 33.8 g/dL (31.6-35.5); Mean Corpuscular Hemoglobin 30.2 pg (28.0-33.3); Mean Corpuscular Volume 89.1 fL (83.0-100.0); Mean Platelet Volume 10.2 fL (9.4-12.4); Monocytes # 0.4 K/mcL (0.0-1.3); Monocytes % 11.6 %; Neutrophils # 2.1 K/mcL (1.6-8.9); Platelet Count 131 K/mcL (140-400); Red Blood Count 4.41 M/mcL (4.19-5.50); Red Cell Distribution Width 12.8 % (11.5-14.5); Segmented Neutrophils % 66.4 %
[2022-02-03 03:46] LABS: Hemoglobin 13.3 g/dL (12.9-16.9); White Blood Count 3.2 K/mcL (4.3-11.1)
[2022-02-03 04:05] LABS: Alanine Aminotransferase 62 Units/L (7-52); Albumin 2.9 g/dL (3.5-5.7); Albumin/Globulin Ratio 1.2 (1.1-2.2); Alkaline Phosphatase 58 Units/L (34-104); Aspartate Amino Transferase 72 Units/L (13-39); BUN/Creatinine Ratio 14 (6-26); Bilirubin,Direct 0.1 mg/dL (0.0-0.2); Bilirubin,Indirect 0.3 mg/dL (0.0-1.0); Bilirubin,Total 0.4 mg/dL (0.3-1.0); Blood Urea Nitrogen 9 mg/dL (8-23); Calcium 7.8 mg/dL (8.6-10.3); Carbon Dioxide 31 mEq/L (23-29); Chloride 106 mEq/L (98-107); Creatine Kinase 767 Units/L (30-223); Globulin 2.5 g/dL (2.4-3.5); Glucose 107 mg/dL (70-105); Magnesium 1.7 mg/dL (1.6-2.6); Osmolality,Calculated 293 (280-300); Phosphorous 1.8 mg/dL (2.7-4.5); Potassium 3.2 mEq/L (3.5-5.1); Sodium 142 mEq/L (136-145); Total Protein 5.4 g/dL (6.4-8.9); eGFR For African Americans > 60 (> 60); eGFR For Non-African Americans > 60 (> 60)
[2022-02-03] MEDS ORDERED: Potassium Chloride Elixir 20 MEQ/15 ML UDC GTUBE PRN (04:16)
[2022-02-03 04:50] LABS: ABG Base Excess 7 mEq/L (-2 to 3); ABG HCO3 31 mEq/L (21-27); ABG Oxygen Saturation 94 % (95-98); ABG PCO2 40 mmHg (35-45); ABG PO2 65 mmHg (85-104); ABG TCO2 32 mEq/L (20-26); Blood Gas Modality AF; Blood Gas VT 500 cc
[2022-02-03] MEDS: *HR* Heparin 5,000 UNIT/ML VIAL SQ SCH ×2 (05:01→17:27)
[2022-02-03] MEDS: Budesonide/Formoterol 160/4.5 1 PUFF INH IH SCH ×2 (07:37→20:05)
[2022-02-03] MEDS: Pantoprazole 40 MG VIAL IVP SCH (09:07)
[2022-02-03] MEDS: Chlorhexidine Rinse 15 ML MOUTHWASH MM SCH ×2 (09:07→19:36)
[2022-02-03] MEDS: cefTRIAXone 2,000 MG in 0.9 % Sodium Chloride 20 ML IVP SCH (09:07)
[2022-02-03] MEDS: Dexmedetomidine HCl 400 MCG/100 ML MLS IVC SCH ×3 (11:15→20:26)
[2022-02-03] MEDS ORDERED: *HR* Dextrose 50 % in Water (Syg) 50 ML SYRINGE IVP ONE (11:26)
[2022-02-03] MEDS: Azithromycin 500 MG in 0.9 % Sodium Chloride 250 ML IVPB SCH (15:35)
[2022-02-03] MEDS ORDERED: *HR* LORazepam 2 MG/ML VIAL ONE (16:21)
[2022-02-03] MEDS: *HR* LORazepam 2 MG/ML VIAL IVP PRN ×2 (16:31→21:26)
[2022-02-04] MEDS: Dexmedetomidine HCl 400 MCG/100 ML MLS IVC SCH ×5 (02:21→23:59)
[2022-02-04] MEDS: *HR* LORazepam 2 MG/ML VIAL IVP PRN ×2 (03:09→22:16)
[2022-02-04] MEDS: Artificial Tears SOLN 15 ML BOTTLE BOTH EYES SCH ×6 (03:51→23:09)
[2022-02-04] MEDS ORDERED: Furosemide 40 MG/4 ML VIAL IVP ONE (04:22)
[2022-02-04] MEDS: Ipratropium/Albuterol Neb 3 ML IH SCH ×7 (04:32→23:25)
[2022-02-04] MEDS: *HR* Heparin 5,000 UNIT/ML VIAL SQ SCH ×2 (05:06→17:08)
[2022-02-04 05:18] LABS: Alanine Aminotransferase 58 Units/L (7-52); Albumin 3.2 g/dL (3.5-5.7); Albumin/Globulin Ratio 1.2 (1.1-2.2); Alkaline Phosphatase 77 Units/L (34-104); Aspartate Amino Transferase 69 Units/L (13-39); BUN/Creatinine Ratio 14 (6-26); Basophils % 0.3 %; Bilirubin,Direct 0.4 mg/dL (0.0-0.2); Bilirubin,Indirect 0.4 mg/dL (0.0-1.0); Bilirubin,Total 0.8 mg/dL (0.3-1.0); Blood Urea Nitrogen 10 mg/dL (6-20); Carbon Dioxide 31 mEq/L (23-29); Chloride 106 mEq/L (98-107); Creatine Kinase 768 Units/L (30-223); Globulin 2.7 g/dL (2.4-3.5); Glucose 91 mg/dL (70-105); Lymphocytes % 12.7 %; Magnesium 1.9 mg/dL (1.6-2.6); Osmolality,Calculated 289 (280-300); Phosphorous 3.9 mg/dL (2.7-4.5); Potassium 4.3 mEq/L (3.5-5.1); Sodium 140 mEq/L (136-145); Total Protein 5.9 g/dL (6.4-8.9); eGFR For African Americans > 60 (> 60); eGFR For Non-African Americans > 60 (> 60)
[2022-02-04 05:20] LABS: Eosinophils # 0.2 K/mcL (0.0-0.6); Eosinophils % 2.5 %; Hemoglobin 13.9 g/dL (12.9-16.9); Immature Granulocytes % 0.5 % (0-4); Immature Platelets 6.1 % (1.1-6.1); Lymphocytes # 0.8 K/mcL (0.6-4.6); Mean Corpuscular HGB Conc 32.3 g/dL (31.6-35.5); Mean Corpuscular Hemoglobin 29.9 pg (28.0-33.3); Mean Corpuscular Volume 92.5 fL (83.0-100.0); Mean Platelet Volume 10.5 fL (9.4-12.4); Monocytes # 0.7 K/mcL (0.0-1.3); Monocytes % 11.4 %; Neutrophils # 4.6 K/mcL (1.6-8.9); Platelet Count 112 K/mcL (140-400); Red Blood Count 4.65 M/mcL (4.19-5.50); Red Cell Distribution Width 12.5 % (11.5-14.5); Segmented Neutrophils % 72.6 %; White Blood Count 6.3 K/mcL (4.3-11.1)
[2022-02-04] MEDS: cefTRIAXone 2,000 MG in 0.9 % Sodium Chloride 20 ML IVP SCH (08:37)
[2022-02-04] MEDS: Pantoprazole 40 MG VIAL IVP SCH (08:37)
[2022-02-04] MEDS: RisperiDONE-M 1 MG TAB.RAPDIS PO SCH ×2 (08:38→09:18)
[2022-02-04] MEDS: carvediloL 6.25 MG TABLET PO SCH ×3 (08:38→17:08)
[2022-02-04] MEDS: Chlorhexidine Rinse 15 ML MOUTHWASH MM SCH ×2 (08:38→20:38)
[2022-02-04] MEDS: Budesonide/Formoterol 160/4.5 1 PUFF INH IH SCH ×2 (09:54→19:59)
[2022-02-04] MEDS ORDERED: Naloxone 0.4 MG/ML INJ IVP PRN (10:04)
[2022-02-04] MEDS ORDERED: Potassium Chloride Elixir 20 MEQ/15 ML UDC GTUBE PRN (10:04)
[2022-02-04] MEDS ORDERED: Albuterol 2.5 MG/3 ML NEBULIZER IH PRN (10:04)
[2022-02-04] MEDS ORDERED: Artificial Tears SOLN 15 ML BOTTLE BOTH EYES PRN (10:04)
[2022-02-04] MEDS ORDERED: Albumin Human 5% 12.5 GM/250 ML IV.SOLN ONE (13:24)
[2022-02-04] MEDS ORDERED: Azithromycin 500 MG in 0.9 % Sodium Chloride 250 ML IVPB SCH (16:00)
[2022-02-04] MEDS: Divalproex (24 HR) 500 MG TABLET PO SCH (20:38)
[2022-02-04] MEDS ORDERED: Divalproex (24 HR) 500 MG TABLET PO SCH (21:00)
[2022-02-04] MEDS ORDERED: Acetaminophen IV 500 MG/50 ML BAG IVPB ONE (21:09)
[2022-02-04] MEDS ORDERED: Dextrose 4 GM Chewable Tablets PO PRN ×2 (21:29)
[2022-02-04] MEDS ORDERED: *HR* Dextrose 50 % in Water (Syg) 50 ML SYRINGE IVP PRN (21:29)
[2022-02-04] MEDS ORDERED: D5% in Water 1,000 ML IVC PRN (21:29)
[2022-02-05] MEDS: Ipratropium/Albuterol Neb 3 ML IH SCH ×6 (03:45→23:27)
[2022-02-05] MEDS: Artificial Tears SOLN 15 ML BOTTLE BOTH EYES SCH ×3 (03:56→13:43)
[2022-02-05] MEDS: *HR* Heparin 5,000 UNIT/ML VIAL SQ SCH ×2 (03:57→17:31)
[2022-02-05] MEDS: Dexmedetomidine HCl 400 MCG/100 ML MLS IVC SCH ×3 (04:58→21:52)
[2022-02-05] MEDS: *HR* LORazepam 2 MG/ML VIAL IVP PRN ×4 (05:15→21:53)
[2022-02-05] MEDS: Budesonide/Formoterol 160/4.5 1 PUFF INH IH SCH ×3 (07:21→19:20)
[2022-02-05 07:42] LABS: Basophils % 0.5 %; Eosinophils # 0.2 K/mcL (0.0-0.6); Eosinophils % 3.7 %; Hematocrit 44.3 % (37.5-50.1); Immature Granulocytes % 0.2 % (0-4); Immature Platelets 6.8 % (1.1-6.1); Lymphocytes # 0.6 K/mcL (0.6-4.6); Lymphocytes % 9.8 %; Mean Corpuscular HGB Conc 33.9 g/dL (31.6-35.5); Mean Corpuscular Volume 88.6 fL (83.0-100.0); Mean Platelet Volume 10.9 fL (9.4-12.4); Monocytes # 0.7 K/mcL (0.0-1.3); Monocytes % 11.3 %; Neutrophils # 4.5 K/mcL (1.6-8.9); Platelet Count 131 K/mcL (140-400); Segmented Neutrophils % 74.5 %
[2022-02-05 07:57] LABS: BUN/Creatinine Ratio 23 (6-26); Blood Urea Nitrogen 15 mg/dL (6-20); Carbon Dioxide 24 mEq/L (23-29); Chloride 104 mEq/L (98-107); Creatine Kinase 384 Units/L (30-223); Glucose 103 mg/dL (70-105); Osmolality,Calculated 285 (280-300); Potassium 4.1 mEq/L (3.5-5.1); Sodium 137 mEq/L (136-145); eGFR For African Americans > 60 (> 60); eGFR For Non-African Americans > 60 (> 60)
[2022-02-05] MEDS: Chlorhexidine Rinse 15 ML MOUTHWASH MM SCH (08:06)
[2022-02-05 08:27] LABS: Platelet Estimate Slight Decrease (Normal)
[2022-02-05] MEDS: carvediloL 6.25 MG TABLET PO SCH ×2 (08:50→17:31)
[2022-02-05] MEDS: RisperiDONE-M 1 MG TAB.RAPDIS PO SCH (08:50)
[2022-02-05] MEDS ORDERED: cefTRIAXone 2,000 MG in 0.9 % Sodium Chloride 20 ML IVP SCH (09:00)
[2022-02-05] MEDS: Nicotine 21 MG PATCH.TD24 TD SCH (11:06)
[2022-02-05] MEDS ORDERED: NON-FORMULARY MEDICATION 1 EACH EACH (Carvedilol [Carvedilol] 12.5 MG Tablet) PO SCH (13:00)
[2022-02-05] MEDS ORDERED: RisperiDONE-M 1 MG TAB.RAPDIS PO SCH (13:15)
[2022-02-05] MEDS: Divalproex (24 HR) 500 MG TABLET PO SCH (20:01)
[2022-02-05] MEDS ORDERED: Divalproex (24 HR) 500 MG TABLET PO SCH (21:00)
[2022-02-06] MEDS: Dexmedetomidine HCl 400 MCG/100 ML MLS IVC SCH ×9 (00:19→22:23)
[2022-02-06 02:18] LABS: Basophils % 0.2 %; Eosinophils # 0.2 K/mcL (0.0-0.6); Eosinophils % 4.3 %; Hematocrit 44.6 % (37.5-50.1); Hemoglobin 15.4 g/dL (12.9-16.9); Immature Granulocytes % 0.2 % (0-4); Lymphocytes # 0.8 K/mcL (0.6-4.6); Mean Corpuscular HGB Conc 34.5 g/dL (31.6-35.5); Mean Corpuscular Hemoglobin 29.8 pg (28.0-33.3); Mean Corpuscular Volume 86.3 fL (83.0-100.0); Mean Platelet Volume 10.4 fL (9.4-12.4); Monocytes # 0.6 K/mcL (0.0-1.3); Monocytes % 11.3 %; Neutrophils # 3.6 K/mcL (1.6-8.9); Platelet Count 169 K/mcL (140-400); Red Blood Count 5.17 M/mcL (4.19-5.50); Red Cell Distribution Width 12.1 % (11.5-14.5); White Blood Count 5.1 K/mcL (4.3-11.1)
[2022-02-06 02:43] LABS: BUN/Creatinine Ratio 24 (6-26); Blood Urea Nitrogen 14 mg/dL (6-20); Calcium 9.1 mg/dL (8.6-10.3); Carbon Dioxide 22 mEq/L (23-29); Chloride 108 mEq/L (98-107); Creatine Kinase 305 Units/L (30-223); Glucose 137 mg/dL (70-105); Osmolality,Calculated 293 (280-300); Potassium 3.6 mEq/L (3.5-5.1); Sodium 140 mEq/L (136-145); eGFR For African Americans > 60 (> 60); eGFR For Non-African Americans > 60 (> 60)
[2022-02-06] MEDS: Ipratropium/Albuterol Neb 3 ML IH SCH ×3 (04:05→11:02)
[2022-02-06] MEDS: *HR* Heparin 5,000 UNIT/ML VIAL SQ SCH ×2 (05:11→17:38)
[2022-02-06] MEDS: Budesonide/Formoterol 160/4.5 1 PUFF INH IH SCH (07:29)
[2022-02-06] MEDS: RisperiDONE-M 1 MG TAB.RAPDIS PO SCH (09:33)
[2022-02-06] MEDS: carvediloL 6.25 MG TABLET PO SCH ×2 (09:34→17:35)
[2022-02-06] MEDS: Nicotine 21 MG PATCH.TD24 TD SCH (09:45)
[2022-02-06] MEDS: Methadone Oral Concentrate 50 MG/5 ML UDC PO SCH (09:51)
[2022-02-06] MEDS ORDERED: Ipratropium/Albuterol Neb 3 ML IH PRN (14:34)
[2022-02-06] MEDS: Divalproex (24 HR) 500 MG TABLET PO SCH (20:14)
[2022-02-06] MEDS: Haloperidol Lactate 5 MG/ML VIAL IVP PRN (22:36)
[2022-02-07] MEDS: Dexmedetomidine HCl 400 MCG/100 ML MLS IVC SCH ×8 (01:16→23:49)
[2022-02-07] MEDS: *HR* Heparin 5,000 UNIT/ML VIAL SQ SCH ×2 (06:29→17:09)
[2022-02-07] MEDS: carvediloL 6.25 MG TABLET PO SCH ×2 (09:23→17:07)
[2022-02-07] MEDS: RisperiDONE-M 1 MG TAB.RAPDIS PO SCH ×2 (09:26→20:30)
[2022-02-07] MEDS: Nicotine 21 MG PATCH.TD24 TD SCH (09:27)
[2022-02-07] MEDS: Methadone Oral Concentrate 50 MG/5 ML UDC PO SCH (10:41)
[2022-02-07] MEDS: Divalproex (24 HR) 500 MG TABLET PO SCH (20:30)
[2022-02-08] MEDS: Dexmedetomidine HCl 400 MCG/100 ML MLS IVC SCH ×3 (03:50→11:09)
[2022-02-08] MEDS: *HR* Heparin 5,000 UNIT/ML VIAL SQ SCH ×2 (06:24→17:21)
[2022-02-08] MEDS: carvediloL 6.25 MG TABLET PO SCH ×2 (08:41→17:19)
[2022-02-08] MEDS: Nicotine 21 MG PATCH.TD24 TD SCH (08:44)
[2022-02-08] MEDS: RisperiDONE-M 1 MG TAB.RAPDIS PO SCH ×2 (08:46→21:33)
[2022-02-08] MEDS: Methadone Oral Concentrate 50 MG/5 ML UDC PO SCH (13:03)
[2022-02-08] MEDS: Divalproex (24 HR) 500 MG TABLET PO SCH (21:02)
[2022-02-08] MEDS: Acetaminophen 325 MG TABLET PO PRN (21:15)
[2022-02-09] MEDS ORDERED: *HR* Labetalol 20 MG/4 ML SYRINGE IVP ONE (01:39)
[2022-02-09] MEDS: *HR* Heparin 5,000 UNIT/ML VIAL SQ SCH ×2 (05:06→16:52)
[2022-02-09] MEDS: carvediloL 6.25 MG TABLET PO SCH ×2 (08:04→16:52)
[2022-02-09] MEDS: Methadone Oral Concentrate 50 MG/5 ML UDC PO SCH (08:05)
[2022-02-09] MEDS: Nicotine 21 MG PATCH.TD24 TD SCH (08:05)
[2022-02-09] MEDS: RisperiDONE-M 1 MG TAB.RAPDIS PO SCH ×2 (08:06→21:45)
[2022-02-09] MEDS: Acetaminophen 325 MG TABLET PO PRN ×2 (08:17→16:58)
[2022-02-09] MEDS: Haloperidol Lactate 5 MG/ML VIAL IVP PRN ×2 (14:45→20:29)
[2022-02-09] MEDS ORDERED: Ketorolac 30 MG/ML VIAL IVP ONE (18:11)
[2022-02-09] MEDS ORDERED: Ziprasidone 10 MG, Closed System Device IM Kit 1 EACH in Water for inj. (sterile) 0.5 ML IM PRN ×2 (20:58→21:45)
[2022-02-09] MEDS: Divalproex (24 HR) 500 MG TABLET PO SCH (21:44)
[2022-02-10 04:12] VITALS: TEMP 97.7
[2022-02-10] MEDS: *HR* Heparin 5,000 UNIT/ML VIAL SQ SCH ×2 (06:34→16:44)
[2022-02-10] MEDS: carvediloL 6.25 MG TABLET PO SCH ×2 (08:07→16:44)
[2022-02-10] MEDS: RisperiDONE-M 1 MG TAB.RAPDIS PO SCH (08:07)
[2022-02-10] MEDS: Methadone Oral Concentrate 50 MG/5 ML UDC PO SCH (08:07)
[2022-02-10] MEDS: Nicotine 21 MG PATCH.TD24 TD SCH (08:07)
[2022-02-10] MEDS: Acetaminophen 325 MG TABLET PO PRN ×2 (08:14→14:19)
[2022-02-10 15:21] VITALS: BP 125/74; O2SAT 94
[2022-02-10 16:15] VITALS: PULSE 110
== END 2022-02-10 17:48 | DRG 871 ==
LOC: EMEROOARM 11:11 → MERGE 15:52 → ICNU 15:52 → SUATTDRO 15:52 → EDBD 15:52 → ICNU 16:38 → 2NNU 02-04 11:22
PROVIDERS: ADMIT Pediatrics; ATTEND Internal Medicine